=== PATIENT | male | born 1975 | race Caucasian/White ===

== ENCOUNTER 2020-11-22 13:14 | Inpatient (IN) | payer SELFPAY ==
[2020-11-22 13:31] VITALS: BP 134/92; PULSE 74; RESP 16; TEMP 37.1; O2SAT 97; BMI 33.6
--- NOTE | 2020-11-22 14:08 | XR_ITS ---
WS: [id number] Portable AP upright chest, 11/22/2020 Clinical Data: cp Comparison: PA and lateral chest, 03/02/2018. Findings: No nodules, masses or effusions are seen. The heart is normal. The pulmonary vascularity is not increased. No pneumonia or pneumothorax is seen. XR/XR chest 1V portable [id number] Impression: Negative chest.
--- NOTE | 2020-11-22 14:08 | ECG_ITS ---
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 Measurements Intervals [place] Rate: 77 P: 35 OR: 165 QRS: -57 QRSD: 102 T: 45 QT: 380 QTc: 432 Interpretive Statements SINUS RHYTHM POSSIBLE LEFT ATRIAL ENLARGEMENT [-0.1mV P WAVE IN V1/V2] LEFT ANTERIOR FASCICULAR BLOCK [QRS AXIS <= -45, QR IN I, RS IN II] Compared to ECG 04/10/2018 10:41:39 Right ventricular hypertrophy now present Incomplete right bundle-branch block now present Electronically Signed On 11-23-2020 7:02:53 CDT by Latisha Peet M.D. [id number]
--- NOTE | 2020-11-22 16:08 | ECG_ITS ---
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 Measurements Intervals [place] Rate: 66 P: 15 [place]: 164 QRS: -40 QRSD: 104 T: 81 QT: 399 QTc: 419 Interpretive Statements SINUS RHYTHM MARKED LEFT AXIS DEVIATION [QRS AXIS < -30] INCOMPLETE RIGHT BUNDLE BRANCH BLOCK [90+ ms QRS DURATION, TERMINAL R IN V1/V2, 40+ ms S IN I/aVL/V4/V5/V6] SEPTAL MYOCARDIAL INFARCTION [40+ ms Q WAVE IN V1/V2], OF INDETERMINATE AGE Compared to ECG 11/22/2020 13:29:00 Left-axis deviation now present Myocardial infarct finding now present Right ventricular hypertrophy no longer present Left anterior fascicular block no longer present Electronically Signed On 11-23-2020 7:12:47 CDT by Latisha Pete M.D. [id number]
[2020-11-22 16:55] LABS: Basophils # 0.1 10^3/uL (0.0-0.1); Basophils % 0.8 %; Eosinophils # 0.3 10^3/uL (0.0-0.8); Eosinophils % 1.4 %; Hematocrit 53.4 % (42.0-52.0); Hemoglobin 16.9 g/dL (11.7-16.6); Lymphocytes # 4.1 10^3/uL (0.8-4.8); Lymphocytes % 23.4 %; Mean Corpuscular HGB Conc 31.6 g/dL (30.0-36.0); Mean Corpuscular Hemoglobin 29.5 pg (28.0-34.0); Mean Corpuscular Volume 93.4 fL (80-94); Monocytes # 1.2 10^3/uL (0.2-0.9); Neutrophils # 11.71 10^3/uL (1.8-7.7); Nucleated Red Blood Cells % 0 %; Platelet Count 833 10^3/cmm (130-400); Red Blood Count 5.72 10^6/uL (4.1-5.3); Red Cell Distribution Width 14.9 % (12.1-15.1); White Blood Count 17.5 10^3/uL (4.0-10.0)
[2020-11-22 17:17] LABS: Troponin(5th) Baseline 75 ng/L (0-15)
[2020-11-22 17:19] LABS: Alanine Aminotransferase 19 U/L (0-41); Albumin Level 4.6 g/dL (3.5-5.2); Alkaline Phosphatase 114 IU/L (40-130); Anion Gap 13.4 (5-19); Aspartate Amino Transferase 25 U/L (0-40); Blood Urea Nitrogen 11 mg/dL (6-20); Calcium 9.1 mg/dL (8.5-10.5); Carbon Dioxide 27 mmol/L (22-29); Chloride 103 mmol/L (98-107); Globulin 2.5 g/dL (1.3-4.6); Glomerular Filtration Rate 105.5 mL/min (90-130); Glucose 82 mg/dL (65-115); Osmolality Calculated 286 mOsm/kg (285-295); Potassium 4.4 mmol/L (3.5-5.1); Sodium 139 mmol/L (136-145); Total Bilirubin 0.3 mg/dL (0.15-1.2); Total Protein 7.1 g/dL (6.6-8.7)
[2020-11-22 18:00] VITALS: BP 124/86; PULSE 62; RESP 15; O2SAT 97
--- NOTE | 2020-11-22 18:29 | W.ED.CHESTPA ---
HPI - Chest Pain General: Chief Complaint: Chest Pain Stated Complaint: CP Time Seen by Provider: 11/22/20 18:19 Source: patient Mode of arrival: ambulatory Limitations: no limitations History of Present Illness: HPI narrative: 45-year-old male states that over the last 2 days he has been having chest pain. He states it started on was mowing and is much worse with exertion. He has a very strong family history of heart disease. He is also a longtime smoker. He states that he was seen in the clinic today was sent here. He had aspirin nitro at the clinic and the nitro did relieve his pain but the pain is returned over the last 2 to 3 hours. States pain is currently a 5 out of 10. Denies any shortness of breath. Denies any nausea or vomiting. Associated symptoms: Deny abdominal pain, dyspnea, fever(s), nausea or vomiting Review of Systems Const: Denies: fever(s), chills, body aches or change in appetite Eyes: Denies: blurry vision or eye discomfort ENMT: Denies: throat pain or dental pain Card: Reports: chest pain Resp: Denies: dyspnea GI: Denies: abdominal pain, nausea, vomiting or diarrhea : Denies: dysuria Musc: Denies: neck pain or back pain Skin/Breast: Denies: rash Neuro: Denies: headache(s) Psych: Denies: depression Ruiz/Lymph: Denies: easy bruising All/Imm: Denies: urticaria PFSH ED PFSH: Family History (Updated 11/22/20 @ 11:55 by Sue Escobar LPN, RT) Brother , age 37; [place] CAD (coronary artery disease) Mother CAD (coronary artery disease) Social History (Updated 11/22/20 @ 12:06 by Sue Escobar LPN, RT) Smoking and tobacco status: current some day smoker cigarettes Packs smoked per day: 1 Years cigarettes smoked: 25 Second hand smoke exposure: Yes Alcohol intake: current Alcohol intake frequency: holidays/special occasions only Caregiver/support person: Yes Lives independently: Yes Household members: spouse Marital status: service: No Current occupational status: employed History of recent travel: No Current gender identity: Male Physical Exam Const: COMMON NORMALS: no acute distress, patient oriented x3 and healthy appearing HENMT: COMMON NORMALS: normocephalic and atraumatic HEAD & SCALP: normocephalic and atraumatic Eye: COMMON NORMALS: Equal, round and reactive pupils present and EOMs intact bilaterally PUPIL: Yes Equal, round and reactive pupils present Neck/C-Spine: COMMON NORMALS: full ROM and supple Chest: COMMONS NORMALS: normal inspection of the chest and normal palpation of entire chest wall Resp: COMMON NORMALS: normal respiratory effort, No retractions, No use of accessory muscles and clear to auscultation bilaterally AUSCULTATION: clear to auscultation bilaterally Cardio: COMMON NORMALS: regular rate, regular rhythm and No murmurs present (Cardio) RATE: regular rate RHYTHM: regular rhythm GI: COMMON NORMALS: Normal to inspection, nondistended, normoactive bowel sounds present, Soft to palpation, non-tender and no masses PALPATION: Yes Soft to palpation Extremity: COMMON NORMALS: normal to inspection and full ROM Neuro: COMMON NORMALS: patient oriented x3, moves all extremities and no focal motor deficits Psych: COMMON NORMALS: mental status grossly normal, Normal thought process present and cooperative THOUGHT PROCESS: Normal thought process present Skin: COMMON NORMALS: no rashes or lesions noted and no wounds GENERAL SKIN EXAM: no rashes or lesions noted Course Vital Signs: Vital signs: Vital Signs Temperature 98.8 F 11/22/20 13:31 Pulse Rate 74 11/22/20 13:31 Respiratory Rate 16 11/22/20 13:31 Blood Pressure 134/92 11/22/20 13:31 Pulse Oximetry 97 11/22/20 13:31 MDM - Chest Pain MDM Narrative: Medical decision making narrative: Patient presents here with a non-ST elevation [place]. Patient's repeat troponin here is elevated. His EKG showed no signs of ST elevation [place]. He has been pain-free here in the ER. Spoke to hospitalist and will admit cardiology is consulted as well. Lab Data: Labs: Lab Results 11/22/20 11/22/20 11/22/20 Range/Units 16:43 16:43 16:43 WBC 17.5 H (4.0-10.0) 10^3/ uL RBC 5.72 H (4.1-5.3) 10^6/u L Hgb 16.9 H (11.7-16.6) g/dL Hct 53.4 H (42.0-52.0) % MCV 93.4 (80-94) fL MCH 29.5 (28.0-34.0) pg MCHC 31.6 (30.0-36.0) g/dL RDW 14.9 (12.1-15.1) % Plt Count 833 H (130-400) 10^3/c mm MPV 9.0 (7.4-10.4) fL Neut % (Auto) 67.0 % Lymph % (Auto) 23.4 % [place] % (Auto) 7.0 % Eos % (Auto) 1.4 % Baso % (Auto) 0.8 % Neut # (Auto) 11.71 H (1.8-7.7) 10^3/u L Lymph # (Auto) 4.1 (0.8-4.8) 10^3/u L [place] # (Auto) 1.2 H (0.2-0.9) 10^3/u L Eos # (Auto) 0.3 (0.0-0.8) 10^3/u L Baso # (Auto) 0.1 (0.0-0.1) 10^3/u L Nucleated RBC % (a uto) 0 % Nucleated RBCs # 0.0 /100WBC Sodium 139 (136-145) mmol/L Potassium 4.4 (3.5-5.1) mmol/L Chloride 103 (98-107) mmol/L Carbon Dioxide 27 (22-29) mmol/L Anion Gap 13.4 (5-19) BUN 11 (6-20) mg/dL Creatinine 0.8 (0.7-1.2) mg/dL GFR Calculation 105.5 (90-130) mL/min Glucose 82 (65-115) mg/dL Calculated Osmolal ity 286 (285-295) mOsm/k g Calcium 9.1 (8.5-10.5) mg/dL Total Bilirubin 0.3 (0.15-1.2) mg/dL AST 25 (0-40) U/L ALT 19 (0-41) U/L Alkaline Phosphata se 114 (40-130) IU/L Troponin T Baselin e 75 H (0-15) ng/L Troponin T 120 Min [place] (0-15) ng/L Delta Troponin T (0-10) ABS# Total Protein 7.1 (6.6-8.7) g/dL Albumin 4.6 (3.5-5.2) g/dL Globulin 2.5 (1.3-4.6) g/dL 11/22/20 Range/Units 18:43 WBC (4.0-10.0) 10^3/ uL RBC (4.1-5.3) 10^6/u L Hgb (11.7-16.6) g/dL Hct (42.0-52.0) % MCV (80-94) fL MCH (28.0-34.0) pg MCHC (30.0-36.0) g/dL RDW (12.1-15.1) % Plt Count (130-400) 10^3/c mm MPV (7.4-10.4) fL Neut % (Auto) % Lymph % (Auto) % [place] % (Auto) % Eos % (Auto) % Baso % (Auto) % Neut # (Auto) (1.8-7.7) 10^3/u L Lymph # (Auto) (0.8-4.8) 10^3/u L [place] # (Auto) (0.2-0.9) 10^3/u L Eos # (Auto) (0.0-0.8) 10^3/u L Baso # (Auto) (0.0-0.1) 10^3/u L Nucleated RBC % (a uto) % Nucleated RBCs # /100WBC Sodium (136-145) mmol/L Potassium (3.5-5.1) mmol/L Chloride (98-107) mmol/L Carbon Dioxide (22-29) mmol/L Anion Gap (5-19) BUN (6-20) mg/dL Creatinine (0.7-1.2) mg/dL GFR Calculation (90-130) mL/min Glucose (65-115) mg/dL Calculated Osmolal ity (285-295) mOsm/k g Calcium (8.5-10.5) mg/dL Total Bilirubin (0.15-1.2) mg/dL AST (0-40) U/L ALT (0-41) U/L Alkaline Phosphata se (40-130) IU/L Troponin T Baselin e (0-15) ng/L Troponin T 120 Min [place] 126.3 H (0-15) ng/L Delta Troponin T 51.3 H* (0-10) ABS# Total Protein (6.6-8.7) g/dL Albumin (3.5-5.2) g/dL Globulin (1.3-4.6) g/dL Imaging Data^: CXR: Attestation: I personally reviewed and interpreted this imaging study as follows: My impression: no acute abnormality EKG Data^: EKG 1: Attestation: I personally reviewed and interpreted this EKG as follows: EKG interpretation date: 11/22/20 EKG interpretation time: 13:29 Interpretation: nsr hr [address] or t wave abnormalities qrs 102 qtc 412 EKG 2: Attestation: I personally reviewed and interpreted this EKG as follows: EKG interpretation date: 11/22/20 EKG interpretation time: 17:35 Interpretation: nsr hr [address] or t wave abnormalities qrs 104 qtc 412 Discharge Plan Discharge Patient Disposition: Admitted As Inpatient Clinical Impression: Non-ST elevation [place] (NSTEMI) Condition: Stable Coding Level of Care Code ED Human Performance Professor for Chg Fwd Exam Comprehensive
[2020-11-22 19:40] LABS: Troponin 5 2HR 126.3 ng/L (0-15); Troponin 5 2HR Delta 51.3 ABS# (0-10)
--- NOTE | 2020-11-22 20:08 | ECG_ITS ---
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 Measurements Intervals [place] Rate: 59 P: 15 [place]: 165 QRS: -40 QRSD: 116 T: 83 QT: 422 QTc: 421 Interpretive Statements SINUS BRADYCARDIA INDETERMINATE AXIS INCOMPLETE RIGHT BUNDLE BRANCH BLOCK [90+ ms QRS DURATION, TERMINAL R IN V1/V2, 40+ ms S IN I/aVL/V4/V5/V6] SEPTAL MYOCARDIAL INFARCTION [40+ ms Q WAVE IN V1/V2], OF INDETERMINATE AGE LATERAL MYOCARDIAL INFARCTION, PROBABLY RECENT Compared to ECG 11/22/2020 17:35:58 Indeterminate axis now present Sinus rhythm no longer present Left-axis deviation no longer present Myocardial infarct finding still present Electronically Signed On 11-23-2020 7:07:13 CDT by Latisha Pete M.D. [id number]
[2020-11-22] MEDS: enoxaparin 80 mg/0.8 mL Syringe SUBCUT (20:09)
--- NOTE | 2020-11-22 20:12 | P.HP_ITS ---
Providers/Chief Complaint Primary Care Provider: AYAZ Ferrell Chief Complaint: CP History of Present Illness Mg Pritchett is a 45 year old male who presented today with chief complaint of chest pain. Patient is stating that he was mowing his lawn yesterday when he started experiencing chest discomfort which he is describing as burning sensation, he attributed his symptoms initially to GERD, at home he took Pepto- Bismol but his symptoms persisted. He was describing his pain as mild burning which stayed all night and in the morning when he woke up he noticed similar complaints, his and mother convinced him to go to his PCP and get evaluated. At the clinic he was given 1 sublingual nitroglycerin, and loading dose of aspirin which relieved his chest discomfort and he was asked to go to the ER for further evaluation. He is denying orthopnea, PND, shortness of breath, nausea, vomiting, diaphoresis. 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 Endorses family history of premature coronary artery disease. His brother who was 37 years of age when he had an DE and sudden cardiac arrest. Diagnosis in the ER revealed NSTEMI EKG is not showing any acute DE changes however showing incomplete right bundle branch block, significant delta troponin, patient is chest pain-free at the time my evaluation, normal blood pressure and heart rate saturating well on room air, was comfortable at the time of interview Review of Systems Narrative: No headache No fever No generalized weakness lethargy or fatigue No vision changes No shortness of breath No abdominal pain No fever, myalgia or lethargy No urinary frequency No joint swelling No skin rash No headache No easy bleeding No heart flashes No signs of depression or anxiety No abdominal pain No shortness of breath Medications/Allergies Home Medications Medication Instructions Recorded Confirmed Last Taken Type No Known Home Medications 11/22/20 11/22/20 Unknown History Allergies Allergy/AdvReac Type Severity Reaction Status Date / Time No Known Allergies Allergy Verified 11/22/20 13:39 PFSH Acute PFSH: Medical History MVP (mitral valve prolapse) Right bundle branch block Surgical History No pertinent past surgical history S/P nasal surgery Family History Brother , age 37; [place] CAD (coronary artery disease) Mother CAD (coronary artery disease) Social History Smoking and tobacco status: current some day smoker cigarettes Packs smoked per day: 1 Years cigarettes smoked: 25 Second hand smoke exposure: Yes Alcohol intake: current Alcohol intake frequency: holidays/special occasions only Caregiver/support person: Yes Lives independently: Yes Household members: spouse Marital status: service: No Current occupational status: employed History of recent travel: No Current gender identity: Male Vitals/I&O/Wt Last Vital Signs Temp 98.8 F 11/22/20 13:31 Pulse 74 11/22/20 13:31 Resp 16 11/22/20 13:31 BP 134/92 11/22/20 13:31 Pulse Ox 97 11/22/20 13:31 Weight last 48 hrs Weight 83.461 kg Physical Exam Narrative: EXAM NARRATIVE: Very pleasant cooperative young male Currently sitting in semi-Fritz position saturating well on room air No active chest pain S1, S2 no signs of murmur Bilateral breath sounds without adventitious rhonchi or crackles Abdomen soft nontender bowel sound present Lower extremity no edema gangrene ulcer Appropriate mood and affect No joint swelling skin changes or cellulitis EOMI, PERRLA no neurological deficit Awake alert oriented x3 GCS 15 Data : 11/22/20 16:43 11/22/20 16:43 A&P Assessment and plan (1) Non-ST elevation [place] (NSTEMI): Status: Acute Additional A&P Information NSTEMI Unstable angina with family history of premature coronary disease N.p.o., will need an angiogram Cardiology consult Start ACS protocol with Lovenox Requested lipid panel, A1c, echo, TSH and drug screen Normal saline maintenance rate N.p.o. DVT prophylaxis not indicated Full code Will need nicotine replacement therapy at the time of discharge Attestations Medical Necessity Statement*: Anticipating stay to hospital course more than 2 midnights for angiogram Time Spent in Patient Care: 30 minutes Coding Level of Care Code Acute Automotive Glass Mechanic for Matthew Ferguson Diagnoses Non-ST elevation [place] (NSTEMI) I21.4
--- NOTE | 2020-11-22 20:19 | PC.NURSE ---
Hold nitropaste for now because pt denies pain at this time. Per Dr. West, in room.
[2020-11-22] MEDS: nicotine 21 mg Patch 1 PATCH TRANSDERMA (20:52)
[2020-11-22 21:45] LABS: Chol HDL Ratio 4.75 mg/dL (1.0-5.00); Cholesterol 152 mg/dL (0-200); HDL Cholesterol 32 mg/dL (60-100); LDL Cholesterol Calculated 100 mg/dL (50-129); LDL HDL Ratio 3.13 RATIO (0.00-3.22); Triglycerides 100 mg/dL (0-150)
[2020-11-22 21:49] LABS: Estmated Average Glucose 105; Hemoglobin A1C 5.3 % (4.0-6.0)
--- NOTE | 2020-11-22 22:54 | PM.CONSULT ---
Providers/Reason For Consult Consulting Physician/Specialty*: Stan Cottrell MD/Cardiology Reason for Consult*: NSTEMI Requesting Physician: Dr Marc Attending Physician: Dr Marie Primary Care Provider: AYAZ Ferrell History of Present Illness History of Present Illness Mg Pritchett is a 45 year old male with past medical history of tobacco abuse and significant family history of coronary artery disease is here with 2 days of chest discomfort. According to patient he started noticing chest discomfort when he was mowing lawn. It has been going on and off however today had a prolonged episode and family convinced him to come to the hospital. His troponins trended up significantly consistent with non-ST elevation [place]. One of his brothers with VA at age 38. EKG does not demonstrate acute ST changes. In the ER she continued having chest pain however after receiving nitros, the chest pain has subsided. Review of Systems Narrative: CONSTITUTIONAL: No fever chills weight loss or gain or night sweats. [] HEENT: Normocephalic, atraumatic.[] RESPIRATORY: No cough, sputum, hemoptysis or wheezing.[] CARDIOVASCULAR: Had chest pain. No shortness of breath, PND, orthopnea, lower extremity edema, presyncope or syncope. [] GI: no nausea vomiting diarrhea. [] SUPERVISOR FRUIT GRADING: No numbness, tingling, weakness or loss of function in any part of the body. [] MUSCULOSKELETAL: No knee or joint pain or rashes. [] Meds/Allergies Home Medications and Allergies Home Medications Medication Instructions Recorded Confirmed Last Taken Type No Known Home Medications 11/22/20 11/23/20 Unknown History Allergies Allergy/AdvReac Type Severity Reaction Status Date / Time No Known Allergies Allergy Verified 11/22/20 13:39 PFSH Acute PFSH: Medical History MVP (mitral valve prolapse) Right bundle branch block Surgical History No pertinent past surgical history S/P nasal surgery Family History Brother , age 37; [place] CAD (coronary artery disease) Mother CAD (coronary artery disease) Social History Smoking and tobacco status: current some day smoker cigarettes Packs smoked per day: 1 Years cigarettes smoked: 25 Second hand smoke exposure: Yes Alcohol intake: current Alcohol intake frequency: holidays/special occasions only Caregiver/support person: Yes Lives independently: Yes Household members: spouse Marital status: service: No Current occupational status: employed History of recent travel: No Current gender identity: Male Vitals/I&O/Wt Last Vital Signs Temp 98.8 F 11/22/20 13:31 Pulse 62 11/22/20 18:00 Resp 15 11/22/20 18:00 BP 124/86 11/22/20 18:00 Pulse Ox 97 11/22/20 18:00 Weight last 48 hrs Weight 184 lb Physical Exam Narrative: EXAM NARRATIVE: GENERAL: Patient is alert, awake and oriented x3. [] NECK: No jugular vein distension. [] HEENT: No cyanosis. No icterus. No pallor. [] HEART: Regular S1 and S2. No murmur, rub or gallop. [] LUNGS: Clear to auscultate bilaterally. [] ABDOMEN: Soft, nontender and nondistended. Positive bowel sounds. No guarding, rebound or tenderness. [] CENTRAL NERVOUS SYSTEM: Grossly nonfocal. [] EXTREMITIES: Lower extremities with 1+ edema bilaterally. Pulses palpable in the lower extremities, both dorsalis pedis and posterior tibial. [] A&P Assessment and plan (1) Non-ST elevation [place] (NSTEMI): Status: Acute (2) Tobacco abuse: Status: Acute Patient has presented with typical chest pain symptoms for the last 2 days and troponin elevation consistent with non-ST elevation [place]. Start aspirin and Plavix. Therapeutic anticoagulation. Keep patient n.p.o. for coronary angiogram in the morning. I have discussed the procedure, risks and benefits associated with it, and patient is agreeable to proceed with it. Order echocardiogram. Thank you for involving us with the care of this patient. We will continue to follow. Please call with questions. Coding Level of Care Code Acute High Pressure Boiler Operator for Matthew Ferguson Diagnoses Non-ST elevation [place] (NSTEMI) I21.4 Tobacco abuse Z72.0
[2020-11-22 23:11] LABS: Troponin 5 6HR 234.3 ng/L (0-15); Troponin 5 6HR Delta 159.3 ng/L (0-12)
--- NOTE | 2020-11-22 23:19 | PC.NURSE ---
Still unable to provide urine specimen.
--- NOTE | 2020-11-22 23:19 | PC.NURSE ---
Denies pain at this time.
[2020-11-22 23:20] VITALS: BP 108/62; PULSE 69; RESP 16; O2SAT 97
[2020-11-23] VITALS (49 sets, daily range): BP systolic 105–143; BP diastolic 64–100; PULSE 55–86; RESP 12–22; TEMP 36.5; O2SAT 95–100
[2020-11-23 01:21] LABS: Amphetamines Screen Urine Negative (Negative); Barbiturates Screen Urine Negative (Negative); Benzodiazepines Screen Urine Negative (Negative); Cocaine Screen Urine Negative (Negative); Opiate Screen Urine Negative (Negative); PCP Screen Urine Negative (Negative); THC Screen Urine Positive (Negative)
--- NOTE | 2020-11-23 03:56 | PC.NURSE ---
2000 Ana Mariatat paste held per hospitalist Frank, who was at bedside. Pt denies pain.
[2020-11-23] MEDS: clopidogrel 300 mg Tablet PO (04:04)
[2020-11-23 06:57] LABS: Anion Gap 13.6 (5-19); Blood Urea Nitrogen 11 mg/dL (6-20); Calcium 8.7 mg/dL (8.5-10.5); Carbon Dioxide 27 mmol/L (22-29); Chloride 102 mmol/L (98-107); Glomerular Filtration Rate 105.5 mL/min (90-130); Glucose 98 mg/dL (65-115); Osmolality Calculated 285 mOsm/kg (285-295); Potassium 4.6 mmol/L (3.5-5.1); Sodium 138 mmol/L (136-145)
--- NOTE | 2020-11-23 07:28 | XACV_ITS ---
[place] [facility] [place] 188 cm Wt: 83 kg BSA: 2.09 m2 Gender: Male : 1975 Any Known Allergies: No known allergies Exam Priority: Routine Procedure(s): Procedure Description: Diagnostic procedure Procedure Description: PCI procedure Procedure Description: Drug Eluting Coronary Stent Procedure Description: PTCA Procedure Description: Miscellaneous Procedure Description: ACT Procedure Description: Coronary Angiography Diagnostic Cath Status: Urgent Diagnostic Findings * No disease noted in the Left Main, Left Anterior Descending, Right, or Circumflex coronary arteries. * 1st Diagonal: severe 90% stenosis, NORBERTO: 3 flow. * Coronary angiography shows right dominance. PCI Status: Urgent PCI Indication: NSTE - ACS Interventional Findings * Procedure details: We engaged left main artery with a XB 3.5 guide catheter. IV heparin was administered to maintain an ACT above 250 seconds. A 0.014 run-through guidewire was used to cross the stenosis and was placed in distal part of diagonal artery. 2.5 x 8 mm semicompliant balloon was used to predilate the stenosis . This was followed by placement of [id number] resolute Cannon drug-eluting stent. At this time final angiogram was performed that showed excellent stent expansion, NORBERTO-3 flow and no residual stenosis. Guidewire and guide catheter were removed. Patient left the Wound Care Specialist in a stable condition. * 1st Diagonal: 90% stenosis treated with a AB TREK 2.50X8 RX BALLOON, and MDT R JEREMIAH 2.75X15 YULI. 0% residual stenosis, NORBERTO: 3 flow. Conclusions 1. Severe stenosis of the proximal first diagonal artery. 2. No disease noted in the Left Main, Left Anterior Descending, Right, or Circumflex coronary arteries. 3. 1st Diagonal was treated with a Balloon, and Drug Eluting Stent. Recommendations * Aspirin and Plavix for atleast 1 year. * High intensity statin therapy. * Aggressive risk factor control. * Outpatient cardiology follow up in 1 month. Interventional RX Recommendation: PCI w/o planned CABG Diagnostic RX Recommendation: PCI w/o planned CABG Anticoagulation: Heparin Pressures Phase:Rest AO : 135 / 58 ( 100 ) @ 7:10:00 AM 99 / 81 ( 91 ) @ 7:15:00 AM 112 / 76 ( 92 ) @ 7:17:00 AM Clinical Evaluation EBL: 5mL-10mL Procedural Details Procedure Consent Obtained. Pre-Procedure Time Out. Identified patient by full name and date of as verbalized by the patient/guarantor. Does the consent match the physician's order: Yes. Accurate & Complete Informed Consent: Yes. Inpatient/Outpatient History & Physical on Chart: Yes. If H&P is completed, is and addenduem needed: No; If yes, is the addendum complete: N/A. Visualize and Verify Site with Patient/Guarantor: N/A. Relevant Radiology Images available: N/A. Pre-op teaching completed and patient verbalized understanding. The risks, benefits, and alternatives of sedation and/or procedure were discussed by physician. The patient agrees to continue. Procedure started. [facility] Clinical Fraility Score: 2: Well. Wound Care Specialist Indications: ACS <= 24 hours. Chest Pain Symptom Assessment: Typical Angina Symptoms. Cardiovascular Instability: No. Correct patient, site and procedure confirmed by cath team. PERRLA. Strong, equal hand electrical continuity tester bilaterally. Lungs clear x 5 lobes. IV Site on Arrival: 18 gauge in the left anticubital. IV Fluids: 0.9% NaCl at KVO. 0 mL infused prior to recyclable materials distributor. Pre Procedural Pulses: bilateral radial was 3+. Pre Procedural Pulses: bilateral dorsalis pedis was 1+. Pre Procedural Pulses: bilateral posterior tibial was 1+. Oxygen started at 2liters/min via nasal canula. right groin was prepped with chloroprep then draped in the usual sterile fashion. right radial was prepped with chloroprep then draped in the usual sterile fashion. Physician arrived. Equipment: 6F - Radial. Cardiac Cath Pack. [employer] Manifold Kit Model BT 2000. Heparinized Saline (2 units/mL), 1000 mL bag. Physician scrubbed in. Immediate Pre-Procedure Time Out. Correct Patient: Yes; Correct Procedure: Yes; Correct Site: Yes; Correct Patient Position: Yes; Correct Supplies: Yes; Dried Flammable Prep: Yes; Blood Products Available: N/A;. Lidocaine 1% infiltrated to the right radial. Arterial access obtained. A 5 turkmen TIG catheter in over wire. Catheter redirected to the RCA. Catheter removed over the exchange wire. A 5 turkmen JR4 catheter in over wire. Multiple views taken of left coronary artery. Multiple views taken of right coronary artery. Catheter removed over the exchange wire. Inventory is CRD 6 FR XB 3.5 GUIDE. Inflation number : 1 A AB TREK 2.50X8 RX BALLOON was prepped and advanced across the 1st Diag , then inflated to 8 JUNAID for 0:17 seconds. Inflation number: 2 The AB TREK 2.50X8 RX BALLOON was reinflated across the 1st Diag, to 8 JUNAID for 0:23 seconds. Balloon out. Inflation Number : 3 A MDT R JEREMIAH 2.75X15 YULI -Lot Number# [id number] exp date 07/29/2022 was prepped and advanced across the 1st Diag. The stent was deployed at 12 JUNAID for 0:23 seconds. Stent balloon out over wire. ACT drawn. Results 411 seconds. Therapeutic limits - pre-heparin administration 90-150 seconds and monitoring heparin during a vascular procedure >250 seconds. Wire out. Guide catheter out. Physician scrubbed out. A TR Band was successful obtaining hemostatsis at the Right Radial artery insertion site. TR band placed. Hemostasis obtained. Post Procedure: Pulses reassessed and unchanged. PERRLA. Strong, equal hand electrical continuity tester bilaterally. No VTE prophylaxis required. Medication's Wasted: Lidocaine 1% = 18 mL. Medication's Wasted: Nitro = 49.4 mg. Medication's Wasted: Other = cardene 24.6 mg. Medication's Wasted: Other = versed 1 mg. Medication's Wasted: Other = fentanyl 50 mcg. Total IV fluids: 170 mL. Contrast type used: Visipaque 320 mgI/mL, 500 mL bottle. Post-op diagnosis: nstemi. PCI Indication: NSTE. Complications: none. Estimated blood loss: 5mL-10mL. Procedure completed. Patient transferred by wheelchair to CPRU. Vital chart was stopped. Access Site Site: Right Radial artery Sheath Size: 6 Fr Hemostasis Method: TR Band Hemostasis Success: Successful Procedure Medications Start: 8:02 AM Stop: 8:02 AM Medication: Versed Amount: 1 mg Route: I.V. Start: 8:02 AM Stop: 8:02 AM Medication: Fentanyl Amount: 50 mcg Route: I.V. Start: 8:05 AM Stop: 8:05 AM Medication: Versed Amount: 1 mg Route: I.V. Start: 8:06 AM Stop: 8:06 AM Medication: Fentanyl Amount: 50 mcg Route: I.V. Start: 8:06 AM Stop: 8:06 AM Medication: Nitrogylcerin Amount: 200 mcg Route: I.A. Start: 8:07 AM Stop: 8:07 AM Medication: Heparin Amount: 5000 units Route: I.V. Start: 8:17 AM Stop: 8:17 AM Medication: Heparin Amount: 5000 units Route: I.V. Start: 8:27 AM Stop: 8:27 AM Medication: Versed Amount: 1 mg Route: I.V. Start: 8:27 AM Stop: 8:27 AM Medication: Fentanyl Amount: 50 mcg Route: I.V. Start: 8:31 AM Stop: 8:31 AM Medication: Nitrogylcerin Amount: 200 mcg Route: I.C. Start: 8:37 AM Stop: 8:37 AM Medication: Cardene Amount: 200 mcg Route: I.C. Start: 8:37 AM Stop: 8:37 AM Medication: 0.9% Saline Amount: 250 ml Route: I.V. bolus I, the attending physician, have reviewed and verified all procedure medications. Yes, all medications given per verbal order History/Risk Factors Hypertension: No Dyslipidemia: No Peripheral Arterial Disease (PAD): No Myocardial Infarction (CA): No Obesity: No Renal Disease: No Tobacco Use: Current/Recent(w/in 1 year) Prior Interventions PCI: No CABG: No Valve Surgery: No Report Signatures Finalized by Stan Cottrell MD on 12/07/2020 05:58 PM
--- NOTE | 2020-11-23 07:43 | PC.NURSE ---
Patient taken to slabber at this time
--- NOTE | 2020-11-23 07:48 | W.PM.OPSUD ---
Surgery/Procedure H&P Update DATE OF PROCEDURE: November 23, 2020 DATE H&P PERFORMED: 11/22/20 H&P UPDATE INFORMATION: I have reviewed H&P completed within last 30 days, I have examined patient prior to procedure and No changes to prior documentation PREOP DIAGNOSIS: NSTEMI PRIMARY INDICATION FOR PROCEDURE: NSTEMI PLANNED PROCEDURE: Left heart cath with possible percutaneous coronary intervention PATIENT REASSESSED PRIOR TO SEDATION, WITH NO CHANGE NOTED: Yes PHYSICAL EXAM: alert, oriented x 3, clear to auscultation bilaterally and regular rate & rhythm AIRWAY EVAL/ANESTHESIA PLAN: ASA III, Monitored Anesthesia, Local Anesthesia, Risks, benefits & alternatives of sedation and/or procedure discussed and Patient agrees to continue as planned
--- NOTE | 2020-11-23 09:04 | PC.CHAP ---
Pastoral Care Encounter/Spiritual Assessment Type of Contact [] Declined power plant technician visit [] Patient/Family/Request visit [] Outpatient visit [] Follow-up visit [] Physician referral [] Code/Alert [x] Routine visit [] Staff referral [] Actively dying [] Patient sleeping [] Family support [] [x] Out of room [] Palliative care [] [] Receiving care in room [] Pre-surgical visit [] Trauma [] Long length of stay [x] ICU visit [] Other: Relational/Emotional Strength [] Patient feels connected with others/family/visitors/staff [] Distress [] Loneliness/isolation [] Abandonment Spirituality of Patient [] Person of Quin [] Attends Rastafarian of their Quin [] Believes in Prayer [] Reads Bible or Scientology materials [] There are Spiritual issues to be addressed Recreational Resort Manager Interventions [] Prayer [] Active listening [] Non-anxious presence [] Spiritual/emotional support [] Crisis/trauma care [] Spiritual counseling [] Bereavement support [] Provided bereavement packet [] Provided Bible/devotional materials [] Provided toy/stuffed animal, coloring book to patient or family member [] Provided Communion [] Anointing/[place] [] Salvation [x] Completed spiritual assessment [] Other: Impact on Illness or Injury [] Angry [] Fearful [] Anxious [] Often cries [] Exhaustion [] Unable to work [] Unable to attend nondenominational [] Unable to walk/stand [] Unable to read [] Unable to drive [] Unable to eat/drink [] Unable to sleep [] Unable to be with family [] Patient intubated [] Other: Summary Time spent with patient
[2020-11-23] MEDS: sodium chloride 0.9% 1,000 ML 100 ML IV ×2 (09:17→15:51)
--- NOTE | 2020-11-23 09:23 | PM.PN ---
Subjective Subjective: Interval history: Patient is doing well. He underwent successful revascularization of the diagonal artery today. Vitals/I&O/Wt Last Vital Signs Temp 98.8 F 11/22/20 13:31 Pulse 66 11/23/20 07:43 Resp 15 11/23/20 07:43 BP 105/64 11/23/20 07:43 Pulse Ox 97 11/23/20 07:43 Weight last 48 hrs Weight 184 lb Physical Exam Narrative: EXAM NARRATIVE: GENERAL: Patient is alert, awake and oriented x3. [] NECK: No jugular vein distension. [] HEENT: No cyanosis. No icterus. No pallor. [] HEART: Regular S1 and S2. No murmur, rub or gallop. [] LUNGS: Clear to auscultate bilaterally. [] ABDOMEN: Soft, nontender and nondistended. Positive bowel sounds. No guarding, rebound or tenderness. [] CENTRAL NERVOUS SYSTEM: Grossly nonfocal. [] EXTREMITIES: Lower extremities with 1+ edema bilaterally. Pulses palpable in the lower extremities, both dorsalis pedis and posterior tibial. [] Data : 11/22/20 16:43 11/23/20 06:29 A&P Assessment and plan (1) Non-ST elevation FL (NSTEMI): Status: Acute (2) Tobacco abuse: Status: Acute Patient had non-ST elevation FL. Underwent coronary angiogram today that revealed to severe thrombotic stenosis of diagonal artery. He underwent successful revascularization with YULI x1. Continue aspirin and Plavix Stop Lovenox Echocardiogram ordered. Thank you for involving us with the care of this patient. We will continue to follow. Please call with questions. Attestations Medical Necessity Statement*: Care expected to cross 2 midnights. Coding Level of Care Code Acute Glass Rolling Machine Operator for Matthew Ferguson Diagnoses Non-ST elevation FL (NSTEMI) I21.4 Tobacco abuse Z72.0
--- NOTE | 2020-11-23 09:34 | USCV_ITS ---
Mg Pritchett Age: 45 Gender: M : 1975 Exam Date: 11/23/2020 14:53 Ordering Phys: Stan Cottrell M.D ([email or web address]) Technologist: Todd Lawton [place] [facility] [place]: NSTEMI BP: 117 / 80 HR: 59 Rhythm: Sinus Technical Quality: Good MEASUREMENTS (Male / Female) Normal Values 2D ECHO LV Diastolic Diameter PLAX 4.6 cm 4.2 - 5.9 / 3.9 - 5.3 cm LV Systolic Diameter PLAX 2.9 cm IVS Diastolic Thickness 1.4 cm 0.6 - 1.0 / 0.6 - 0.9 cm IVS Systolic Thickness 1.4 cm LVPW Diastolic Thickness 1.0 cm 0.6 - 1.0 / 0.6 - 0.9 cm LVPW Systolic Thickness 1.2 cm LVOT Diameter 2.0 cm LV Ejection Fraction 2D Teich 66.8 % LV Ejection Fraction MOD 2C 71.6 % LV Ejection Fraction 2C AL 71.3 % LA Diameter 3.1 cm LA Width 3.7 cm LA Height 4.2 cm RA Width 3.3 cm RA Height 4.3 cm Aorta at Sinotubular Diameter 2.6 cm M-MODE Aortic Annulus Diameter 3.7 cm LA Ao Ratio MM 0.9 DOPPLER AV Peak Velocity 100.0 cm/s LVOT Peak Velocity 97.0 cm/s AV Area Cont Eq vti 2.9 cm squared AV Area Cont Eq pk 3.0 cm squared MV Area PHT 3.5 cm squared Mitral E to A Ratio 0.9 MV E' Velocity 43.0 cm/s Mitral E to MV E' Ratio 7.6 Mitral E to LV E' Lateral Ratio 8.2 Mitral E to LV E' Septal Ratio 7.2 TR Peak Velocity 126.0 cm/s TR Peak Gradient 6.4 mmHg TV Peak E Velocity 79.0 cm/s Right Atrial Pressure 3.0 mmHg Pulmonary Artery Systolic Pressu 9.4 mmHg PV Peak Velocity 68.0 cm/s FINDINGS Left Ventricle Normal left ventricular size. LV systolic function is normal with EF of 55-60%. There is mild hypokinesis of the anterolateral wall. Normal disatolic function is noted. Right Ventricle The right ventricle is normal in size and function. Right Atrium The right atrium is normal in size. Left Atrium The left atrium is normal in size. Mitral Valve Structurally normal mitral valve without significant stenosis or prolapse. There is no mitral regurgitation. Aortic Valve Structurally normal aortic valve without significant sclerosis or stenosis. There is no aortic regurgitation. Tricuspid Valve Structurally normal tricuspid valve without significant stenosis or regurgitation. Pulmonary artery systolic pressure is normal. Pulmonic Valve Structurally normal pulmonic valve without significant stenosis. There is no pulmonic regurgitation. Pericardium Normal pericardium without effusion. Aorta Normal ascending aorta dimension. CONCLUSIONS LV systolic function is normal with EF of 55-60% There is mild hypokinesis of the aterolateral wall Diastolic function is normal No significant valvular heart disease No comparison studies are available Stan Cottrell MD (Electronically Signed) Final Date: 24 November 2020 11:09 S
[2020-11-23] MEDS: atorvastatin 40 mg Tablet 80 MG PO (11:06)
[2020-11-23] MEDS: metoprolol succinate ER (24 HR) 25 mg Tablet 12.5 MG PO (11:06)
[2020-11-23] MEDS: aspirin 81 mg EC Tablet PO (11:06)
--- NOTE | 2020-11-23 11:34 | P.PN_ITS ---
Subjective Subjective: Interval history: Admitted overnight. Underwent revascularization to floweree with cardiovascular team today. Tolerated procedure well. Does not have any chest pain right now. Denies any nausea vomiting, headache. Vitals/I&O/Wt Last Vital Signs Temp 97.7 F 11/23/20 09:11 Pulse 66 11/23/20 11:30 Resp 13 11/23/20 11:30 BP 125/84 11/23/20 11:30 Pulse Ox 97 11/23/20 11:30 Weight last 48 hrs Weight 83.461 kg Physical Exam Narrative: EXAM NARRATIVE: GENERAL: Patient is alert, awake and oriented x3. [] NECK: No jugular vein distension. [] HEENT: No cyanosis. No icterus. No pallor. [] HEART: Regular S1 and S2. No murmur, rub or gallop. [] LUNGS: Clear to auscultate bilaterally. [] ABDOMEN: Soft, nontender and nondistended. Positive bowel sounds. No guarding, rebound or tenderness. [] CENTRAL NERVOUS SYSTEM: Grossly nonfocal. [] EXTREMITIES: Lower extremities with 1+ edema bilaterally. Pulses palpable in the lower extremities, both dorsalis pedis and posterior tibial. [] Data : 11/22/20 16:43 11/23/20 06:29 A&P Assessment and plan (1) Non-ST elevation GA (NSTEMI): Status: Acute Additional A&P Information NSTEMI: Post PCI to floweree. Continue with aspirin, Plavix, statin. Check lipid panel, A1c. Check echocardiogram. Urine drug screen negative. Check TSH. Continue with metoprolol 12.5 succinate. Start patient on lisinopril oral from tomorrow depending on the blood pressures. Transfer to CSU when bed available. Chronic smoker: Discussed in detail for need to smoking cessation given CAD and post PCI status now. Patient verbalized understanding. Also offered any help regarding cessation if needed. Patient has nicotine patch for now. Full code. Lovenox for DVT prophylaxis. Cardiac diet. Attestations Medical Necessity Statement*: Need for hospitalization for management of non- ST elevation GA, post PCI to floweree. Time Spent in Patient Care: Greater than 35 minutes (>than 50% of time spent in counselling and/or direct pt care on unit) . Coding Level of Care Code Acute Driver/Refuse Collector for Matthew Ferguson Diagnoses Non-ST elevation GA (NSTEMI) I21.4
[2020-11-23 12:36] LABS: Iron 55 ug/dL (59-158); Percent Saturation 18.9 % (20-50); Thyroid Stimulating Hormone 1.48 uIU/mL (0.27-4.20); Total Iron Binding Capacity 291 mcg/dl; Unsaturated Iron Binding 236 ug/dL (112-347)
[2020-11-23] MEDS: temazepam 15 mg Capsule PO (21:04)
[2020-11-23] MEDS: nicotine 21 mg Patch 1 PATCH TRANSDERMA (21:09)
[2020-11-24] VITALS (11 sets, daily range): BP systolic 106–133; BP diastolic 63–92; PULSE 57–82; RESP 14–19; TEMP 36.5; O2SAT 94–98
[2020-11-24] MEDS: sodium chloride 0.9% 1,000 ML 100 ML IV (01:54)
[2020-11-24 02:49] LABS: Basophils # 0.1 10^3/uL (0.0-0.1); Basophils % 0.7 %; Eosinophils # 0.2 10^3/uL (0.0-0.8); Eosinophils % 1.1 %; Hematocrit 50.3 % (42.0-52.0); Hemoglobin 16.3 g/dL (11.7-16.6); Lymphocytes # 3.7 10^3/uL (0.8-4.8); Lymphocytes % 19.4 %; Mean Corpuscular HGB Conc 32.4 g/dL (30.0-36.0); Mean Corpuscular Hemoglobin 29.4 pg (28.0-34.0); Mean Corpuscular Volume 90.6 fL (80-94); Mean Platelet Volume 9.5 fL (7.4-10.4); Monocytes # 1.2 10^3/uL (0.2-0.9); Monocytes % 6.5 %; Neutrophils # 13.67 10^3/uL (1.8-7.7); Neutrophils % 71.9 %; Nucleated Red Blood Cells % 0 %; Platelet Count 791 10^3/cmm (130-400); Red Blood Count 5.55 10^6/uL (4.1-5.3); Red Cell Distribution Width 14.7 % (12.1-15.1)
[2020-11-24 02:50] LABS: Estmated Average Glucose 105; Hemoglobin A1C 5.3 % (4.0-6.0)
[2020-11-24 03:05] LABS: Alanine Aminotransferase 24 U/L (0-41); Albumin Level 3.7 g/dL (3.5-5.2); Alkaline Phosphatase 102 IU/L (40-130); Anion Gap 12.9 (5-19); Aspartate Amino Transferase 50 U/L (0-40); Blood Urea Nitrogen 10 mg/dL (6-20); Calcium 8.6 mg/dL (8.5-10.5); Carbon Dioxide 24 mmol/L (22-29); Chloride 105 mmol/L (98-107); Globulin 2.4 g/dL (1.3-4.6); Glomerular Filtration Rate 105.5 mL/min (90-130); Glucose 91 mg/dL (65-115); Osmolality Calculated 285 mOsm/kg (285-295); Potassium 3.9 mmol/L (3.5-5.1); Sodium 138 mmol/L (136-145); Total Bilirubin 0.5 mg/dL (0.15-1.2); Total Protein 6.1 g/dL (6.6-8.7)
--- NOTE | 2020-11-24 07:53 | P.PN_ITS ---
Subjective Subjective: Interval history: Patient is doing well. No complaints of chest pain, shortness of breath or palpitations. Vitals/I&O/Wt Last Vital Signs Temp 97.7 F 11/23/20 09:11 Pulse 61 11/24/20 05:59 Resp 16 11/24/20 04:00 BP 114/87 11/24/20 04:00 Pulse Ox 97 11/24/20 04:00 11/23/20 11/24/20 11/24/20 22:59 06:59 14:59 Intake Total 956.667 / 6860.399 9778 / 2356.667 Output Total 500 / 950 Balance 456.667 / 614.433 8839 / 1406.667 Weight last 48 hrs Weight 184 lb Physical Exam Narrative: EXAM NARRATIVE: GENERAL: Patient is alert, awake and oriented x3. [] NECK: No jugular vein distension. [] HEENT: No cyanosis. No icterus. No pallor. [] HEART: Regular S1 and S2. No murmur, rub or gallop. [] LUNGS: Clear to auscultate bilaterally. [] ABDOMEN: Soft, nontender and nondistended. Positive bowel sounds. No guarding, rebound or tenderness. [] CENTRAL NERVOUS SYSTEM: Grossly nonfocal. [] EXTREMITIES: Lower extremities with 1+ edema bilaterally. Pulses palpable in the lower extremities, both dorsalis pedis and posterior tibial. [] Data : 11/24/20 00:57 11/24/20 00:57 A&P Assessment and plan (1) Non-ST elevation SD (NSTEMI): Status: Acute (2) Tobacco abuse: Status: Acute Patient had non-ST elevation SD. Underwent coronary angiogram yesterday that revealed to severe thrombotic stenosis of diagonal artery. He underwent successful revascularization with YULI x1. Continue aspirin and Plavix High intensity statin therapy ECHO showed preserved LV systolic function with hypokinesis of the anterolateral wall. Thank you for involving us with the care of this patient. We will continue to follow. Please call with questions. Attestations Medical Necessity Statement*: Care expected to cross 2 midnights. Coding Level of Care Code Acute Integrated Program Teacher for Matthew Ferguson Diagnoses Non-ST elevation SD (NSTEMI) I21.4 Tobacco abuse Z72.0
[2020-11-24] MEDS: aspirin 81 mg EC Tablet PO (08:27)
[2020-11-24] MEDS: clopidogrel 75 mg Tablet PO (08:27)
[2020-11-24] MEDS: lisinopril 10 mg Tablet PO (08:28)
[2020-11-24] MEDS: metoprolol succinate ER (24 HR) 25 mg Tablet 12.5 MG PO (08:28)
[2020-11-24] MEDS: atorvastatin 40 mg Tablet 80 MG PO (08:28)
[2020-11-24] MEDS: nicotine 21 mg Patch 1 PATCH TRANSDERMA (08:32)
--- NOTE | 2020-11-24 08:58 | PC.RESP ---
SMOKING CESSATION INFORMATION SENT TO PATIENT.
--- NOTE | 2020-11-24 10:21 | P.DS_ITS ---
Discharge Providers Date of Admission: 11/23/20 03:53 Date of Discharge: November 24, 2020 Attending Provider at Admission: Tres Marie MD Attending Provider at Discharge: Sixto Zepeda MD Consults: Cardiology: Dr. Cottrell Primary Care Provider: AYAZ Ferrell Diagnoses at Discharge Discharge Diagnosis (1) Non-ST elevation MD (NSTEMI): Status: Acute (2) Tobacco abuse: Status: Acute (3) Right bundle branch block: Status: Acute (4) MVP (mitral valve prolapse): Status: Acute Reason for Visit Reason for Visit: Hospital Course Hospital Course Mg Pritchett is a 45 year old male who presented today with chief complaint of chest pain. Patient is stating that he was mowing his lawn yesterday when he started experiencing chest discomfort which he is describing as burning sensation, he attributed his symptoms initially to GERD, at home he took Pepto- Bismol but his symptoms persisted. He was describing his pain as mild burning which stayed all night and in the morning when he woke up he noticed similar complaints, his and mother convinced him to go to his PCP and get evaluated. At the clinic he was given 1 sublingual nitroglycerin, and loading dose of aspirin which relieved his chest discomfort and he was asked to go to the ER for further evaluation. He is denying orthopnea, PND, shortness of breath, nausea, vomiting, diaphoresis. 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 Endorses family history of premature coronary artery disease. His brother who was 37 years of age when he had an MD and sudden cardiac arrest. Extubate him to the hospital for management Patient went to the hospital for management of Non-ST elevation MD. Cardiology was consulted underwent cardiac angiogram on November 23, 2020. He underwent successful revascularization of diagonal artery. His hospital stay and procedure were unremarkable. He did not have any further chest pain. His cardiac medications were adjusted. He is being discharged in medically stable condition advised to follow-up with a primary care provider within next 1 week and Ai Villanueva within next 1 week and cardiology office in next 1 month. He was counseled multiple times in detail for cessation of smoking. Physical Exam Narrative: EXAM NARRATIVE: GENERAL: Patient is alert, awake and oriented x3. [] NECK: No jugular vein distension. [] HEENT: No cyanosis. No icterus. No pallor. [] HEART: Regular S1 and S2. No murmur, rub or gallop. [] LUNGS: Clear to auscultate bilaterally. [] ABDOMEN: Soft, nontender and nondistended. Positive bowel sounds. No guarding, rebound or tenderness. [] CENTRAL NERVOUS SYSTEM: Grossly nonfocal. [] EXTREMITIES: Lower extremities with 1+ edema bilaterally. Pulses palpable in the lower extremities, both dorsalis pedis and posterior tibial. 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 echo complete * [id number] Routine Ultrasound 11/23/20 09:34 Taken Labs from last 24 hours 11/24/20 11/24/20 11/24/20 00:57 00:57 00:57 WBC 19.0 H RBC 5.55 H Hgb 16.3 Hct 50.3 MCV 90.6 MCH 29.4 MCHC 32.4 RDW 14.7 Plt Count 791 H MPV 9.5 Neut % (Auto) 71.9 Lymph % (Auto) 19.4 [place] % (Auto) 6.5 Eos % (Auto) 1.1 Baso % (Auto) 0.7 Neut # (Auto) 13.67 H Lymph # (Auto) 3.7 [place] # (Auto) 1.2 H Eos # (Auto) 0.2 Baso # (Auto) 0.1 Nucleated RBC % (a uto) 0 Nucleated RBCs # 0.0 Sodium 138 Potassium 3.9 Chloride 105 Carbon Dioxide 24 Anion Gap 12.9 BUN 10 Creatinine 0.8 GFR Calculation 105.5 Glucose 91 Estimat Average Gl ucose 105 Hemoglobin A1c 5.3 Calculated Osmolal ity 285 Calcium 8.6 Iron TIBC % Saturation Unsat Iron Binding Total Bilirubin 0.5 AST 50 H ALT 24 Alkaline Phosphata se 102 Total Protein 6.1 L Albumin 3.7 Globulin 2.4 TSH 11/23/20 11/23/20 06:29 06:29 WBC RBC Hgb Hct MCV MCH MCHC RDW Plt Count MPV Neut % (Auto) Lymph % (Auto) [place] % (Auto) Eos % (Auto) Baso % (Auto) Neut # (Auto) Lymph # (Auto) [place] # (Auto) Eos # (Auto) Baso # (Auto) Nucleated RBC % (a uto) Nucleated RBCs # Sodium Potassium Chloride Carbon Dioxide Anion Gap BUN Creatinine GFR Calculation Glucose Estimat Average Gl ucose Hemoglobin A1c Calculated Osmolal ity Calcium Iron 55 L Cancelled TIBC 291 Cancelled % Saturation 18.9 L Cancelled Unsat Iron Binding 236 Cancelled Total Bilirubin AST ALT Alkaline Phosphata se Total Protein Albumin Globulin TSH 1.48 Addt'l Data from Hospital Stay: Laboratory Results WBC 19.0 10^3/uL (4.0 -10.0) H 11/24/20 00:57 RBC 5.55 10^6/uL (4.1 -5.3) H 11/24/20 00:57 Hgb 16.3 g/dL (11.7-1 6.6) 11/24/20 00:57 Hct 50.3 % (42.0-52.0 ) 11/24/20 00:57 MCV 90.6 fL (80-94) 07 00:57 MCH 29.4 pg (28.0-34. 0) 07 00:57 MCHC 32.4 g/dL (30.0-3 6.0) 11/24/20 00:57 RDW 14.7 % (12.1-15.1 ) 11/24/20 00:57 Plt Count 791 10^3/cmm (130 -400) H 11/24/20 00:57 MPV 9.5 fL (7.4-10.4) 11/24/20 00:57 Neut % (Auto) 71.9 % 11/24/20 00:57 Lymph % (Auto) 19.4 % 11/24/20 00:57 [place] % (Auto) 6.5 % 11/24/20 00:57 Eos % (Auto) 1.1 % 11/24/20 00:57 Baso % (Auto) 0.7 % 11/24/20 00:57 Neut # (Auto) 13.67 10^3/uL (1. 8-7.7) H 11/24/20 00:57 Lymph # (Auto) 3.7 10^3/uL (0.8- 4.8) 11/24/20 00:57 [place] # (Auto) 1.2 10^3/uL (0.2- 0.9) H 11/24/20 00:57 Eos # (Auto) 0.2 10^3/uL (0.0- 0.8) 11/24/20 00:57 Baso # (Auto) 0.1 10^3/uL (0.0- 0.1) 11/24/20 00:57 Nucleated RBC % (a uto) 0 % 11/24/20 00:57 Nucleated RBCs # 0.0 /100WBC 11/24/20 00:57 Sodium 138 mmol/L (136-1 45) 11/24/20 00:57 Potassium 3.9 mmol/L (3.5-5 .1) 11/24/20 00:57 Chloride 105 mmol/L (98-10 7) 11/24/20 00:57 Carbon Dioxide 24 mmol/L (22-29) 11/24/20 00:57 Anion Gap 12.9 (5-19) 11/24/20 00:57 BUN 10 mg/dL (6-20) 11/24/20 00:57 Creatinine 0.8 mg/dL (0.7-1. 2) 11/24/20 00:57 GFR Calculation 105.5 mL/min (90- 130) 11/24/20 00:57 Glucose 91 mg/dL (65-115) 11/24/20 00:57 Estimat Average Gl ucose 105 11/24/20 00:57 Hemoglobin A1c 5.3 % (4.0-6.0) 11/24/20 00:57 Calculated Osmolal ity 285 mOsm/kg (285- 295) 11/24/20 00:57 Calcium 8.6 mg/dL (8.5-10 .5) 11/24/20 00:57 Iron 55 ug/dL (59-158) L 11/23/20 06:29 Iron Cancelled 11/23/20 06:29 TIBC 291 mcg/dl 11/23/20 06:29 TIBC Cancelled 11/23/20 06:29 % Saturation 18.9 % (20-50) L 11/23/20 06:29 % Saturation Cancelled 07/01/21 06:29 Unsat Iron Binding 236 ug/dL (112-34 7) 11/23/20 06:29 Unsat Iron Binding Cancelled 11/23/20 06:29 Total Bilirubin 0.5 mg/dL (0.15-1 .2) 11/24/20 00:57 AST 50 U/L (0-40) H 11/24/20 00:57 ALT 24 U/L (0-41) 11/24/20 00:57 Alkaline Phosphata se 102 IU/L (40-130) 11/24/20 00:57 Troponin T Baselin e 75 ng/L (0-15) H 11/22/20 16:43 Troponin T 120 Min faby 126.3 ng/L (0-15) H 11/22/20 18:43 Delta Troponin T 51.3 ABS# (0-10) H* 11/22/20 18:43 Troponin T Hi Sens 6Hr 234.3 ng/L (0-15) H 11/22/20 22:37 Troponin T Hi Sens 6Hr Delta 159.3 ng/L (0-12) H* 11/22/20 22:37 Total Protein 6.1 g/dL (6.6-8.7 ) L 11/24/20 00:57 Albumin 3.7 g/dL (3.5-5.2 ) 11/24/20 00:57 Globulin 2.4 g/dL (1.3-4.6 ) 11/24/20 00:57 Triglycerides 100 mg/dL (0-150) 11/22/20 19:05 Cholesterol 152 mg/dL (0-200) 11/22/20 19:05 LDL Cholesterol, C alc 100 mg/dL (50-129 ) 11/22/20 19:05 HDL Cholesterol 32 mg/dL (60-100) L 11/22/20 19:05 LDL/HDL Ratio 3.13 RATIO (0.00- 3.22) 11/22/20 19:05 Cholesterol/HDL Ra jessica 4.75 mg/dL (1.0-5 .00) 11/22/20 19:05 TSH 1.48 uIU/mL (0.27 -4.20) 11/23/20 06:29 Urine Opiates Scre en Negative ng/mL (N egative) 11/23/20 00:40 Ur Barbiturates Sc reen Negative ng/mL (N egative) 11/23/20 00:40 Ur Phencyclidine S crn Negative ng/mL (N egative) 11/23/20 00:40 Ur Amphetamines Sc reen Negative ng/mL (N egative) 11/23/20 00:40 U Benzodiazepines Scrn Negative ng/mL (N egative) 11/23/20 00:40 Urine Cocaine Scre en Negative ng/mL (N egative) 11/23/20 00:40 U Marijuana (THC) Screen Positive ng/mL (N egative) H 11/23/20 00:40 Impressions Chest X-Ray 11/22/20 14:08 Impression: Negative chest. Vitals: Last Vital Signs Temp 97.7 F 11/23/20 09:11 Pulse 68 11/24/20 08:00 Resp 14 11/24/20 08:00 BP 114/67 11/24/20 08:00 Pulse Ox 97 11/24/20 08:00 Discharge Plan Discharge Patient Disposition: Home Condition: Stable Prescriptions: New atorvastatin 40 mg Tablet 80 mg PO DAILY 30 Days Qty: 60 RF: 0 clopidogrel 75 mg Tablet 75 mg PO DAILY Qty: 30 RF: 0 aspirin 81 mg Tablet,Delayed Release (Dr/Ec) 81 mg PO DAILY 30 Days Qty: 30 RF: 0 lisinopril 10 mg Tablet 10 mg PO DAILY Qty: 30 RF: 0 metoprolol succinate 25 mg Tablet Extended Release 24 Hr 12.5 mg PO DAILY Qty: 30 RF: 0 No Action No Known Home Medications RF: 0 Discharge Orders: Discharge Order (Routine); Ordered 11/24/20 Ordered By: Sixto Zepeda Referrals: Stan Cottrell M.D [Physician] - 1 month Sue Mathews FNP [Primary Care Provider] - 7-10 days Ai Villanueva FNP [Nurse Practitioner] - 4-7 days Discharge Diet: Cardiac Discharge Activity: Resume usual activity Patient Instructions: Opioid Safety Activity Restrictions/Additional Instructions: Please follow-up with your primary care provider within next 1 week. Please follow-up with Ai Villanueva next 4 to 7 days. Please continue to work on smoking cessation as discussed in detail. Discharge Attestations Time Spent in Discharge Care*: greater than 30 min Specific Discharge Activities: educating patient, educating and/or supporting family/caregiver, discussing with pcp/other providers, discussing with correctional case records supervisor/social workers/dc planners, documenting/other paperwork and evaluating patient/reviewing data Time Spent in Smoking Cessation: more than 10 minutes Status at Discharge: Cognitive status at discharge: cognitively intact , Behavioral status at discharge: cooperative , Functional status at discharge: independent ambulation Overall status at discharge: patient is back to baseline Quality Metrics Clinical Quality Measures During this hospital stay, did patient experience: AMI Clinical Trial Participant: No Contraindication to aspirin (AMI): Aspirin given Contraindicat ion to statin: Statin prescribed Contraindication to PCI: PCI performed Coding Level of Care Code Acute [facility] DC note Diagnoses Non-ST elevation MD (NSTEMI) I21.4 Tobacco abuse Z72.0 Right bundle branch block I45.10 MVP (mitral valve prolapse) I34.1
--- NOTE | 2020-11-24 10:54 | PC.NURSE ---
iv removed whole and intact at this time for discharge
[2020-11-24 11:07] LABS: LAB Peripheral Smear Sent for Review
== END 2020-11-24 11:21 | disposition home or self-care (01) | DRG 247 ==
LOC: ER 20:10 → ICU 11-23 07:43
PROVIDERS: Family Medicine; Internal Medicine; Admitting Provider Internal Medicine; Emergency Provider Emergency Medicine; PCP Nurse Practitioner Family; Visit Provider Student in an Organized Health Care Education/Training Program
PROC: B211YZZ Fluoroscopy of Multiple Coronary Arteries using Other Contrast (ICD-10-PCS; principal; 2020-11-23 10:00)
PROC: B211YZZ Fluoroscopy of Multiple Coronary Arteries using Other Contrast (ICD-10-PCS; 2020-11-23 10:00)
DX: I21.4 Non-ST elevation (NSTEMI) myocardial infarction (principal); I25.110 Atherosclerotic heart disease of native coronary artery with unstable angina pectoris; I34.1 Nonrheumatic mitral (valve) prolapse; I45.10 Unspecified right bundle-branch block; F17.210 Nicotine dependence, cigarettes, uncomplicated; Z82.49 Family history of ischemic heart disease and other diseases of the circulatory system
CPT/HCPCS: 36415; 71045; 80048; 80053; 80061; 80306; 80500; 83036; 83540; 83550; 84443; 84484; 85025; 85347; 93005; 93306; 93454; 96372; 99285; C1725; C1769; C1874; C1887; C1894; C9600; J1644; J1650; J2250; J3010; J3490; J7030; Q9967

== ENCOUNTER → 2020-11-29 15:25 | Outpatient (BNVA) | payer SELFPAY | PROVIDERS: PCP Nurse Practitioner Family; Visit Provider Nurse Practitioner Family | DX: I21.4 Non-ST elevation (NSTEMI) myocardial infarction (principal); Z72.0 Tobacco use; D72.829 Elevated white blood cell count, unspecified | CPT/HCPCS: 80500; 85025 ==

== ENCOUNTER → 2020-12-04 11:12 | Outpatient (BNVA) | payer SELFPAY | PROVIDERS: PCP Nurse Practitioner Family; Visit Provider Nurse Practitioner Family | DX: I25.119 Atherosclerotic heart disease of native coronary artery with unspecified angina pectoris (principal); Z79.899 Other long term (current) drug therapy | CPT/HCPCS: 80048 ==

== ENCOUNTER 2021-11-27 16:54 | Emergency (ER) | payer SELFPAY ==
[2021-11-27 17:00] VITALS: BP 136/93; PULSE 83; RESP 18; TEMP 36.8; O2SAT 94; BMI 24.7
--- NOTE | 2021-11-27 17:24 | XRR_ITS ---
PROCEDURE INFORMATION: Exam: XR Chest Exam date and time: 11/27/2021 5:56 PM Age: 46 years old Clinical indication: Chest wall pain; Additional info: Chest pain TECHNIQUE: Imaging protocol: Radiologic exam of the chest. Views: 1 view. COMPARISON: CR XR chest 1V portable [id number] 11/22/2020 2:49 PM FINDINGS: Lungs: Unremarkable. No consolidation. Pleural spaces: Unremarkable. No pleural effusion. No pneumothorax. Heart/Mediastinum: Unremarkable. No cardiomegaly. Bones/joints: Unremarkable. XR/XR chest 1V portable [id number] IMPRESSION: No acute findings.
--- NOTE | 2021-11-27 17:31 | ED_ITS ---
HPI - Chest Pain General: Chief Complaint: Chest Pain Stated Complaint: Chest pains Time Seen by Provider: 11/27/21 17:24 History of Present Illness: 46-year-old male patient comes in today with complaints of intermittent chest discomfort. Patient had chest pain about 1 year ago in which she was evaluated and 2 stents were placed in his heart. Patient use medications for approximately 6 months after the procedure but since then has not been using any medication. Patient does occasionally use aspirin and ibuprofen for pain and discomfort. Patient reports starting about 1:00 last night he started having chest discomfort and tried aspirin and Maalox with minimal to no relief. Patient reports the pain is just intermittent at times. Patient denies any surgeries, or other medical problems. Associated symptoms: Reports nausea; Deny dyspnea, fever(s) or vomiting Review of Systems General: Reports: 10 or more systems reviewed and unremarkable except in HPI and below Const: Denies: fever(s) Card: Reports: chest pain Resp: Denies: dyspnea GI: Reports: nausea and diarrhea; Denies: vomiting : Denies: difficulty urinating Musc: Denies: extremity pain Skin/Breast: Denies: rash Neuro: Denies: headache(s) PFS ED PFSH: Medical History Coronary artery disease MVP (mitral valve prolapse) Right bundle branch block Tobacco abuse Surgical History No pertinent past surgical history S/P coronary artery stent placement First diagonal S/P nasal surgery Family History Brother , age 37; [place] CAD (coronary artery disease) Mother CAD (coronary artery disease) Social History Smoking and tobacco status: current every day smoker cigarettes Packs smoked per day: 1 Years cigarettes smoked: 25 Second hand smoke exposure: Yes Alcohol intake: current Alcohol intake frequency: holidays/special occasions only Caregiver/support person: Yes Lives independently: Yes Household members: spouse Marital status: service: No Current occupational status: employed History of recent travel: No Current gender identity: Male Physical Exam Const: COMMON NORMALS: alert HENMT: COMMON NORMALS: normocephalic HEAD & SCALP: normocephalic Neck/C-Spine: GENERAL: Yes normal visual inspection Chest: COMMONS NORMALS: normal inspection of the chest Resp: COMMON NORMALS: normal respiratory effort and clear to auscultation bi laterally AUSCULTATION: clear to auscultation bilaterally Cardio: COMMON NORMALS: regular rate, regular rhythm, S1 normal heart sound present and S2 normal heart sound present RATE: regular rate RHYTHM: regular rhythm HEART SOUNDS: S1 normal heart sound present and S2 normal heart sound present GI: COMMON NORMALS: Soft to palpation and non-tender PALPATION: Yes Soft to palpation : COMMON NORMALS: Yes no CVA tenderness BLADDER/KIDNEY EXAM: Yes no CVA tenderness Back/Pelvis: COMMON NORMALS: no CVA tenderness Extremity: COMMON NORMALS: normal to inspection and full ROM Neuro: SENSORIUM/ORIENTATION: Yes alert Skin: COMMON NORMALS: no rashes or lesions noted GENERAL SKIN EXAM: no rashes or lesions noted Course Vital Signs: Vital signs: Vital Signs Temperature 98.3 F 11/27/21 17:00 Pulse Rate 83 11/27/21 17:00 Respiratory Rate 18 11/27/21 17:00 Blood Pressure 136/93 11/27/21 17:00 Pulse Oximetry 94 11/27/21 17:00 MDM - Chest Pain Medical Decision Making 46-year-old male patient comes in today for complaints of some intermittent chest discomfort starting last night. Patient reports nothing makes the pain better or worse. On exam lungs are clear to auscultation. Vital signs are normal. Patient did have some right upper quadrant abdominal tenderness on deep palpation. Differential diagnosis includes ACS, stable angina, gastritis, cholecystitis. Laboratory values were unremarkable. Patient does have a high platelet count which is normal for him. Reviewed exam with patient with joe mmendations for medications including aspirin daily and restart metoprolol tartrate. Also recommended follow-up appointment with cardiology for further evaluation and consideration of stress test. Patient reported understanding and agreed to plan. Lab Data : 11/27/21 17:50 11/27/21 17:50 Radiology Impressions Chest X-Ray 11/27/21 17:24 IMPRESSION: No acute findings. Laboratory Results WBC 13.6 10^3/uL (4.0-10.0) H 11/27/21 17:50 RBC 5.21 10^6/uL (4.1-5.3) 11/27/21 17:50 Hgb 16.1 g/dL (11.7-16.6) 11/27/21 17:50 Hct 47.4 % (42.0-52.0) 11/27/21 17:50 MCV 91.0 fl (80-94) 11/27/21 17:50 MCH 30.9 pg (28.0-34.0) 11/27/21 17:50 MCHC 34.0 g/dL (30.0-36.0) 11/27/21 17:50 RDW 13.8 % (12.1-15.1) 11/27/21 17:50 Plt Count 887 10^3/cmm (130-400) H 11/27/21 17:50 MPV 9.1 fL (7.4-10.4) 11/27/21 17:50 Neut % (Auto) 70.1 % 11/27/21 17:50 Lymph % (Auto) 21.1 % 11/27/21 17:50 Placer % (Auto) 5.8 % 11/27/21 17:50 Eos % (Auto) 1.5 % 11/27/21 17:50 Baso % (Auto) 0.8 % 11/27/21 17:50 Neut # (Auto) 9.49 10^3/uL (1.8-7.7) H 11/27/21 17:50 Lymph # (Auto) 2.9 10^3/uL (0.8-4.8) 11/27/21 17:50 Placer # (Auto) 0.8 10^3/uL (0.2-0.9) 11/27/21 17:50 Eos # (Auto) 0.2 10^3/uL (0.0-0.8) 11/27/21 17:50 Baso # (Auto) 0.1 10^3/uL (0.0-0.1) 11/27/21 17:50 Nucleated RBC % (auto) 0 % 11/27/21 17:50 Nucleated RBCs # 0.0 /100WBC 11/27/21 17:50 Sodium 139 mmol/L (136-145) 11/27/21 17:50 Potassium 3.7 mmol/L (3.5-5.1) 11/27/21 17:50 Chloride 99 mmol/L (98-107) 11/27/21 17:50 Carbon Dioxide 26 mmol/L (22-29) 11/27/21 17:50 Anion Gap 17.7 (5-19) 11/27/21 17:50 BUN 17 mg/dL (6-20) 11/27/21 17:50 Creatinine 0.9 mg/dL (0.7-1.2) 11/27/21 17:50 GFR Calculation 91.7 mL/min (90-130) 11/27/21 17:50 Glucose 106 mg/dL (65-115) 11/27/21 17:50 Calculated Osmolality 290 mOsm/kg (285-295) 11/27/21 17:50 Calcium 9.5 mg/dL (8.5-10.5) 11/27/21 17:50 Total Bilirubin 0.2 mg/dL (0.15-1.2) 11/27/21 17:50 AST 17 U/L (0-40) 11/27/21 17:50 ALT 20 U/L (0-41) 11/27/21 17:50 Alkaline Phosphatase 111 IU/L (40-130) 11/27/21 17:50 Troponin T Baseline 6 ng/L (0-15) 11/27/21 17:50 NT-Pro-B Natriuret Pep 32 pg/mL (0-125) 11/27/21 17:50 Total Protein 7.2 g/dL (6.6-8.7) 11/27/21 17:50 Albumin 4.6 g/dL (3.5-5.2) 11/27/21 17:50 Globulin 2.6 g/dL (1.3-4.6) 11/27/21 17:50 Lipase 40 U/L (13-60) 11/27/21 17:50 EKG Data EKG 1: EKG interpretation date: 11/27/21 EKG interpretation time: 17:52 Interpretation: EKG shows a sinus rhythm with a regular rate [address] elevation or ectopy is noted. Prior exam was not available for comparison at this time. Discharge Plan Discharge Patient Disposition: Home Clinical Impression: Chest pain Qualifiers: Chest pain type: unspecified Qualified Code(s): R07.9 - Chest pain, unspecified Coronary artery disease Qualifiers: Coronary Disease-Associated Artery/Lesion type: unspecified vessel or lesion type [place] vs. transplanted heart: [place] heart Associated angina: with stable angina Qualified Code(s): I25.118 - Atherosclerotic heart disease of [place] coronary artery with other forms of angina pectoris Condition: Stable Prescriptions: No Action clopidogrel 75 mg tablet 75 mg PO DAILY Qty: 90 3RF lisinopril 10 mg tablet 10 mg PO DAILY Qty: 90 3RF metoprolol succinate 25 mg tablet extended release 24 hr 12.5 mg PO DAILY Qty: 45 3RF atorvastatin 80 mg tablet 80 mg PO DAILY Qty: 90 3RF Discharge Orders: Discharge ED (Routine); Ordered 11/27/21 Ordered By: George Weiss Referrals: Sue Mathews FNP [Primary Care Provider] - Discharge Diet: Usual diet Discharge Activity: Increase activity as tolerated Patient Instructions: Chest Pain (ED) Activity Restrictions/Additional Instructions: Home and rest. Drink plenty of fluids. Restart aspirin and medications as dir ected. Follow-up with core dipper. I have placed a case management request to help with that appointment. Return to ER for worsening symptoms or new concerns. Coding Level of Care Code ED Marketing Project Specialist for Matthew Ferguson Exam Comprehensive
[2021-11-27 17:56] LABS: Basophils # 0.1 10^3/uL (0.0-0.1); Basophils % 0.8 %; Eosinophils # 0.2 10^3/uL (0.0-0.8); Eosinophils % 1.5 %; Hematocrit 47.4 % (42.0-52.0); Hemoglobin 16.1 g/dL (11.7-16.6); Lymphocytes # 2.9 10^3/uL (0.8-4.8); Lymphocytes % 21.1 %; Mean Corpuscular Hemoglobin 30.9 pg (28.0-34.0); Mean Platelet Volume 9.1 fL (7.4-10.4); Monocytes # 0.8 10^3/uL (0.2-0.9); Monocytes % 5.8 %; Neutrophils # 9.49 10^3/uL (1.8-7.7); Neutrophils % 70.1 %; Nucleated Red Blood Cells % 0 %; Platelet Count 887 10^3/cmm (130-400); Red Blood Count 5.21 10^6/uL (4.1-5.3); Red Cell Distribution Width 13.8 % (12.1-15.1); White Blood Count 13.6 10^3/uL (4.0-10.0)
[2021-11-27] MEDS: nitroglycerin 1 gm/inch oint Pkt 0.5 INCH TOPICAL (18:02)
[2021-11-27] MEDS: aspirin 81 mg Chew Tablet 162 MG PO (18:14)
[2021-11-27 18:19] LABS: Troponin(5th) Baseline 6 ng/L (0-15)
[2021-11-27 18:27] LABS: Alanine Aminotransferase 20 U/L (0-41); Albumin Level 4.6 g/dL (3.5-5.2); Alkaline Phosphatase 111 IU/L (40-130); Anion Gap 17.7 (5-19); Aspartate Amino Transferase 17 U/L (0-40); Blood Urea Nitrogen 17 mg/dL (6-20); Calcium 9.5 mg/dL (8.5-10.5); Carbon Dioxide 26 mmol/L (22-29); Chloride 99 mmol/L (98-107); Globulin 2.6 g/dL (1.3-4.6); Glomerular Filtration Rate 91.7 mL/min (90-130); Glucose 106 mg/dL (65-115); Lipase 40 U/L (13-60); NT Pro B Type Natriuretic Pept 32 pg/mL (0-125); Osmolality Calculated 290 mOsm/kg (285-295); Potassium 3.7 mmol/L (3.5-5.1); Sodium 139 mmol/L (136-145); Total Bilirubin 0.2 mg/dL (0.15-1.2); Total Protein 7.2 g/dL (6.6-8.7)
[2021-11-27 19:01] VITALS: BP 113/76; PULSE 82; RESP 16; O2SAT 95
--- NOTE | 2021-11-29 14:44 | DCPLANNER ---
Addendum entered by Sherley Louie 01/16/22 11:37: Patient had a follow up appointment scheduled for 12.05.21 with [facility] - patient did attend appointment. Addendum entered by Sherley Louie 12/04/21 15:57: Patient has a follow up appointment scheduled for Sunday, December 05, 2021 at 3:[address] Cottrell. Clinic will call patient with appointment information. Original Note: manager protein had message to schedule a follow up appointment with cardiology. manager protein sent patients information to the front office staff at [facility]. Patients information will be printed and reviewed. Clinic will call patient with appointment information.
== END 2021-11-27 19:15 | disposition home or self-care (01) ==
PROVIDERS: Emergency Provider Nurse Practitioner Family; PCP Nurse Practitioner Family
DX: I25.118 Atherosclerotic heart disease of native coronary artery with other forms of angina pectoris (principal); F17.210 Nicotine dependence, cigarettes, uncomplicated; Z95.5 Presence of coronary angioplasty implant and graft; Z79.02 Long term (current) use of antithrombotics/antiplatelets; Z82.49 Family history of ischemic heart disease and other diseases of the circulatory system
CPT/HCPCS: 71045; 80053; 83690; 83880; 84484; 85025; 99285

== ENCOUNTER 2023-08-22 09:42 | Emergency (ER) | payer OTHER, SELFPAY ==
[2023-08-22 10:00] VITALS: BP 143/87; PULSE 88; RESP 16; TEMP 36.5; O2SAT 96
--- NOTE | 2023-08-22 10:03 | ED_ITS ---
HPI - Abdominal Pain 2 General: Chief Complaint: Abdominal Pain Stated Complaint: left side abd pain Time Seen by Provider: 08/22/23 10:00 Source: patient Mode of arrival: ambulatory Limitations: no limitations History of Present Illness: Patient is a 48-year-old male presents to ED today with complaint of left lower abdominal pain that started yesterday after coughing. Patient states since then he has noticed pain. He states pain is controllable with rest or not moving but states when he changes positions, coughs, sneezes, walks he has discomfort. He has not noticed any masses or bulges. He does feel like the area is swollen. He has not had any nausea, vomiting, diarrhea. He is passing gas. No fevers or chills. He has not noticed any rash or skin lesions. He has no tenderness or swelling noted to the scrotum or inguinal region. MD elicited complaint: abdominal pain Pertinent past history: none Onset (ago): day(s) (yesterday) Pain Consistency: constant Location: LLQ Severity: severe Quality: sharp Radiation: none Migration to: no migration Exacerbating factors: movement and other (coughing, sneezing, positional changes) Relieving factors: rest (sitting still) Associated Symptoms: Denies change in bowel habits, chills, diarrhea, dysuria, fever(s), hematuria, nausea and vomiting Review of Systems 2 Const: Denies: fever(s), chills, body aches, fatigue or malaise Card: Denies: chest pain Resp: Denies: dyspnea GI: Reports: abdominal pain; Denies: nausea, vomiting, diarrhea or change in bowel habits : Denies: flank pain, dysuria or hematuria Musc: Denies: back pain Skin/Breast: Denies: rash Neuro: Denies: numbness in extremities, weakness in extremities, sensory changes or dizziness PFSH ED 2 PFSH: Medical History Coronary artery disease Tobacco abuse Right bundle branch block MVP (mitral valve prolapse) Surgical History S/P coronary artery stent placement First diagonal S/P nasal surgery No pertinent past surgical history Family History Brother , age 37; [place] CAD (coronary artery disease) Mother CAD (coronary artery disease) Social History Smoking and tobacco/nicotine status: current every day tobacco/nicotine user cigarettes Packs smoked per day: 1 Years cigarettes smoked: 25 Second hand smoke exposure: Yes Alcohol intake: current Alcohol intake frequency: holidays/special occasions only Substance/Drug Use: current Substance/Drug use frequency: daily Caregiver/support person: Yes Lives independently: Yes Household members: spouse Marital status: service: No Current occupational status: employed Current gender identity: Male Physical Exam 2 Const: COMMON NORMALS: no acute distress, average body habitus, patient oriented x3, no limitations, healthy appearing, alert and well nourished Eye: COMMON NORMALS: no scleral icterus Resp: COMMON NORMALS: normal respiratory effort and clear to auscultation bilaterally AUSCULTATION: clear to auscultation bilaterally Cardio: COMMON NORMALS: regular rate and regular rhythm RATE: regular rate RHYTHM: regular rhythm GI: COMMON NORMALS: Normal to inspection, nondistended, normoactive bowel sounds present, Soft to palpation, No hepatosplenomegaly present and no masses INSPECTION: Yes normal to inspection PALPATION: Yes Soft to palpation, Yes Tenderness to palpation present (GI) Details: LLQ, No Guarding due to palpation present (GI), No Rigid due to palpation and Yes No hepatosplenomegaly present GI image (male): 1. TTP-no obvious defects or hernias appreciated : COMMON NORMALS: Yes no CVA tenderness BLADDER/KIDNEY EXAM: Yes no CVA tenderness Back/Pelvis: COMMON NORMALS: no CVA tenderness, thoracic and lumbar spine normal to inspection and no thoracic nor lumbar tenderness Extremity: GENERAL: Yes normal exam except as noted Neuro: MEGHANN COMA SCALE: document GCS findings Meghann coma scale eye opening: Spontaneous Meghann coma scale verbal response: Orientated [place] coma scale motor response: [place]bey commands [place] coma scale total score: 15 COMMON NORMALS: patient oriented x3 SENSORIUM/ORIENTATION: Yes alert Skin: COMMON NORMALS: no rashes or lesions noted GENERAL SKIN EXAM: no rashes or lesions noted Course 2 Vital Signs: Vital signs: Vital Signs Temperature 97.7 F 08/22/23 10:00 Pulse Rate 82 08/22/23 10:27 Respiratory Rate 16 08/22/23 10:00 Blood Pressure 143/87 08/22/23 10:27 Pulse Oximetry 96 08/22/23 10:27 Oxygen Delivery Me thod Room Air 08/22/23 10:27 MDM - Abdominal Pain Medical Decision Making Patient here for acute onset left lower abdominal pain after coughing yesterday. CBC showing a very mild white count. He does appear to have chronic thrombocytosis dating back to 2020. UA is clear. Chemistry and lipase were hemolyzed. Repeated attempts at redraw were unsuccessful. Patient ultimately declined any further attempts. CT scan impression stating subtle findings suggesting a mild descending and sigmoid colitis. I feel this is probably unlikely based on his history. Hernia/abdominal wall defect has been ruled out. Most likely this is more of a muscle abdominal strain. Will place on steroids. Return to precautions given. Differential Diagnosis Likely abdominal pain, constipation, diverticulitis and gastroenteritis Medical Records I reviewed the patient's medical records. Lab Data I reviewed the patient's lab results. 08/22/23 10:43 08/22/23 10:43 Labs/Radiology: Radiology Impressions Abdomen/Pelvis CT 08/22/23 10:17 IMPRESSION: Subtle findings suggesting a mild descending and sigmoid colitis. Laboratory Results WBC 14.02 10^3/uL (3.29-11.43) H 08/22/23 10:43 RBC 5.59 10^6/uL (3.85-5.65) 08/22/23 10:43 Hgb 17.30 g/dL (11.27-16.99) H 08/22/23 10:43 Hct 52.5 % (37-53) 08/22/23 10:43 MCV 93.9 fl (82-101) 08/22/23 10:43 MCH 30.9 pg (27-33) 08/22/23 10:43 MCHC 33.0 g/dL (30-55) 08/22/23 10:43 RDW 15.2 % (12.1-15.1) H 08/22/23 10:43 Plt Count 959 10^3/cmm (157-399) H 08/22/23 10:43 MPV 8.8 fL (7.4-10.4) 08/22/23 10:43 Neut % (Auto) 71.6 % 08/22/23 10:43 Lymph % (Auto) 18.3 % 08/22/23 10:43 [place] % (Auto) 6.8 % 08/22/23 10:43 Eos % (Auto) 1.6 % 08/22/23 10:43 Baso % (Auto) 0.9 % 08/22/23 10:43 Neut # (Auto) 10.03 10^3/uL (1.8-7.7) H 08/22/23 10:43 Lymph # (Auto) 2.6 10^3/uL (0.8-4.8) 08/22/23 10:43 [place] # (Auto) 1.0 10^3/uL (0.2-0.9) H 08/22/23 10:43 Eos # (Auto) 0.2 10^3/uL (0.0-0.8) 08/22/23 10:43 Baso # (Auto) 0.1 10^3/uL (0.0-0.1) 08/22/23 10:43 Nucleated RBC % (auto) 0 % 08/22/23 10:43 Nucleated RBCs # 0.0 /100WBC 08/22/23 10:43 Sodium Cancelled 08/22/23 10:43 Potassium Cancelled 08/22/23 10:43 Chloride Cancelled 08/22/23 10:43 Carbon Dioxide Cancelled 08/22/23 10:43 Anion Gap Cancelled 08/22/23 10:43 BUN Cancelled 08/22/23 10:43 Creatinine Cancelled 08/22/23 10:43 GFR Calculation Cancelled 08/22/23 10:43 Glucose Cancelled 08/22/23 10:43 Calculated Osmolality Cancelled 08/22/23 10:43 Calcium Cancelled 08/22/23 10:43 Total Bilirubin Cancelled 08/22/23 10:43 AST Cancelled 08/22/23 10:43 ALT Cancelled 08/22/23 10:43 Alkaline Phosphatase Cancelled 08/22/23 10:43 Total Protein Cancelled 08/22/23 10:43 Albumin Cancelled 08/22/23 10:43 Globulin Cancelled 08/22/23 10:43 Lipase Cancelled 08/22/23 10:43 Urine Color Yellow (Yellow) 08/22/23 10:45 Urine Appearance Clear (CLEAR) 08/22/23 10:45 Urine pH 5 (5-7) 08/22/23 10:45 Ur Specific [place] 1.020 (1.005-1.030) 08/22/23 10:45 Urine Protein Neg (Negative) 08/22/23 10:45 Urine Glucose (UA) Norm (Normal) 08/22/23 10:45 Urine Ketones Negative (Negative) 08/22/23 10:45 Urine Blood Neg (Negative) 08/22/23 10:45 Urine Nitrate Negative (Negative) 08/22/23 10:45 Urine Bilirubin Neg (Negative) 08/22/23 10:45 Urine Urobilinogen Neg mg/dL (Negative) 08/22/23 10:45 Ur Leukocyte Esterase Negative (Negative) 08/22/23 10:45 All radiology interpretation(s) finalized by discharge Discharge Plan Discharge Patient Disposition: Home Clinical Impression: Left lower quadrant abdominal pain Condition: Stable Prescriptions: New prednisone 10 mg tablet 10 mg PO DAILY 6 Days Qty: 20 0RF Rx Instructions: Take 5 tabs on day 1-2, 4 tabs on day 3, 3 tabs on day 4, 2 tabs on day 5, and 1 tab on day 6 Discharge Orders: Discharge ED (Routine); Ordered 08/22/23 Ordered By: Slime Pacheco Referrals: Sue Mathews FNP [Primary Care Provider] - Patient Instructions: Abdominal Pain (ED) Activity Restrictions/Additional Instructions: As we discussed your CT scan today suggested a possible mild colitis. I think this is less likely given your history however I would like you to do a bland liquid diet over the next 48 hours and slowly advance as tolerated. We will place you on steroids. Also recommend trying an anti-inflammatory pain medications, ice, heat as there is some concern of musculoskeletal etiology based on history. Recommend follow-up with primary care in a week or so if symptoms do not seem to be improving. Coding Level of Care Code ED Basket Weaver for Matthew Ferguson
--- NOTE | 2023-08-22 10:17 | CTR_ITS ---
PROCEDURE INFORMATION: Exam: CT Abdomen And Pelvis With Contrast Exam date and time: 08/22/2023 10:50 AM Age: 48 years old Clinical indication: Abdominal pain; Localized; Left lower quadrant (llq); Additional info: L lower abdominal pain; Poss hernia? TECHNIQUE: Imaging protocol: Computed tomography of the abdomen and pelvis with contrast. Radiation optimization: All CT scans at this facility use at least one of these dose optimization techniques: automated exposure control; mA and/or kV adjustment per patient size (includes targeted exams where dose is matched to clinical indication); or iterative reconstruction. Contrast material: OMNI 350; Contrast volume: 100 ml; Contrast route: INTRAVENOUS (IV); COMPARISON: US scrotum [id number] 03/03/2018 11:52 AM RADIATION DOSE METRICS: Total DLP (mGy-cm): 624.93 FINDINGS: Liver: Normal. No mass. Gallbladder and bile ducts: Normal. No calcified stones. No ductal dilation. Pancreas: Normal. No ductal dilation. Spleen: Normal. No splenomegaly. Adrenal glands: Normal. No mass. Kidneys and ureters: Normal. No hydronephrosis. Stomach and bowel: The descending and sigmoid colon are empty. There is probably mild thickening of the wall of the descending and adjacent sigmoid colon probably representing a mild colitis. There is no pericolonic stranding however. Appendix: No evidence of appendicitis. Intraperitoneal space: Unremarkable. No free air. No significant fluid collection. Vasculature: Unremarkable. No abdominal aortic aneurysm. Lymph nodes: Unremarkable. No enlarged lymph nodes. Urinary bladder: Unremarkable as visualized. Reproductive: Likely left hydrocele. Bones/joints: Unremarkable. No acute fracture. Soft tissues: Unremarkable. CT/CT abdomen pelvis w con* [id number] IMPRESSION: Subtle findings suggesting a mild descending and sigmoid colitis.
[2023-08-22 10:27] VITALS: BP 143/87; PULSE 82; O2SAT 96
[2023-08-22 10:48] LABS: Add Urine Microscopic? NO; Charge for UA Resulting for Rev
[2023-08-22 10:49] LABS: Basophils # 0.1 10^3/uL (0.0-0.1); Basophils % 0.9 %; Eosinophils # 0.2 10^3/uL (0.0-0.8); Eosinophils % 1.6 %; Hematocrit 52.5 % (37-53); Lymphocytes # 2.6 10^3/uL (0.8-4.8); Lymphocytes % 18.3 %; Mean Corpuscular Hemoglobin 30.9 pg (27-33); Mean Corpuscular Volume 93.9 fl (82-101); Mean Platelet Volume 8.8 fL (7.4-10.4); Monocytes % 6.8 %; Neutrophils # 10.03 10^3/uL (1.8-7.7); Neutrophils % 71.6 %; Nucleated Red Blood Cells % 0 %; Platelet Count 959 10^3/cmm (157-399); Red Blood Count 5.59 10^6/uL (3.85-5.65); Red Cell Distribution Width 15.2 % (12.1-15.1); White Blood Count 14.02 10^3/uL (3.29-11.43)
[2023-08-22 10:52] LABS: Bilirubin Urine Neg (Negative); Blood Urine Neg (Negative); Glucose Urine UA Norm (Normal); Ketones Urine Negative (Negative); Leukocyte Esterase Urine Negative (Negative); Nitrate Urine Negative (Negative); Protein Urine Neg (Negative); Urine Appearance Clear (CLEAR); Urine Color Yellow (Yellow); Urobilinogen Urine Neg (Negative); pH Urine 5 (5-7)
[2023-08-22] MEDS: iohexol 350 mg/mL 500 mL Btl (per mL) IV (10:58)
[2023-08-22 11:40] VITALS: BP 143/87; PULSE 82; RESP 16; TEMP 36.5; O2SAT 96
== END 2023-08-22 11:41 | disposition home or self-care (01) ==
PROVIDERS: Emergency Provider Physician Assistant; PCP Nurse Practitioner Family
DX: R10.32 Left lower quadrant pain (principal); I25.10 Atherosclerotic heart disease of native coronary artery without angina pectoris; F17.210 Nicotine dependence, cigarettes, uncomplicated
CPT/HCPCS: 74177; 81003; 85025; 99285; Q9967

== ENCOUNTER 2023-09-19 15:41 | Emergency (ER) | payer OTHER, SELFPAY ==
[2023-09-19 15:42] VITALS: BP 166/94; PULSE 94; RESP 14; TEMP 36.6; O2SAT 98
--- NOTE | 2023-09-19 16:07 | XRR_ITS ---
PROCEDURE INFORMATION: Exam: XR Chest Exam date and time: 09/19/2023 4:18 PM Age: 48 years old Clinical indication: Pain; Angina pectoris; Additional info: Chest pain TECHNIQUE: Imaging protocol: Radiologic exam of the chest. Views: 1 view. COMPARISON: CR XR chest 1V portable [id number] 11/27/2021 5:56 PM FINDINGS: Lungs: Unremarkable. No consolidation. Pleural spaces: Unremarkable. No pleural effusion. No pneumothorax. Heart/Mediastinum: Unremarkable. No cardiomegaly. Bones/joints: Unremarkable. XR/XR chest 1V portable [id number] IMPRESSION: No acute findings.
--- NOTE | 2023-09-19 16:08 | ED_ITS ---
Documented by User: ADRIA Villafuerte 09/19/23 16:17 HPI - Abdominal Pain 2 General: Chief Complaint: Abdominal Pain Stated Complaint: abd pain radiating into chest Time Seen by Provider: 09/19/23 15:48 Source: patient Mode of arrival: ambulatory Limitations: no limitations History of Present Illness: Patient is a 48-year-old male presents to ED today with a complaint of upper abdominal pain over the past week and a half or so. States pain is constant with intermittent waves of exacerbation. He describes the pain as burning and squeezing and sometimes radiates up into his chest. He feels like symptoms got worse after eating salty potato chips. Patient states he was seen here approximately 4 weeks ago for some left sided belly pain. I personally saw patient on that visit. Blood work and CT scan at that time was essentially unremarkable. He states this pain is completely subsided. He states he has had quite a bit of heartburn lately. He states he works at a [employer] and has been taking animal sodium bicarb to treat his indigestion. Patient has not had any nausea or vomiting. He feels like bowel movements are for the most part normal. No fevers. Patient was here back in 2020 for an NSTEMI. He was subsequently taken to the [facility] during his inpatient hospitalization and reportedly received two cardiac stents. He states my symptoms then just felt like indigestion . He does not complain of chest pain currently. When asked where he primarily hurts at, he points to epigastric region. MD elicited complaint: abdominal pain Pertinent past history: myocardial infarction Onset (ago): week(s) Location: Epigastric and RUQ Severity: moderate Quality: burning and other (squeezing) Radiation: chest Migration to: no migration Exacerbating factors: eating (states salty potato chips made it worse) Relieving factors: nothing Associated Symptoms: Reports heartburn; Denies chills, GI cramping, dysuria, fever(s), hematochezia, melena, nausea, syncope and vomiting Review of Systems 2 Const: Denies: fever(s), chills, body aches, fatigue or malaise Card: Reports: chest pain; Denies: palpitations, irregular heart rhythm, edema, swelling of feet/ankles, lightheadedness, syncope, pre-syncope, dyspnea on exertion, orthopnea, leg pain with exertion or acrocyanosis Resp: Denies: dyspnea, productive cough, non-productive cough, wheezing, pain on inspiration, change in phlegm color, hemoptysis or chest congestion GI: Reports: abdominal pain and heartburn; Denies: nausea, vomiting, dysphagia, GI cramping, hematochezia or melena : Denies: flank pain, difficulty urinating, dysuria, urinary frequency, urinary urgency or urinary hesitancy Musc: Denies: neck pain, back pain, extremity pain or joint pain Skin/Breast: Denies: rash Neuro: Denies: headache(s), numbness in extremities, weakness in extremities or sensory changes PFSH ED 2 PFSH: Medical History Coronary artery disease Tobacco abuse Right bundle branch block MVP (mitral valve prolapse) Surgical History S/P coronary artery stent placement First diagonal S/P nasal surgery No pertinent past surgical history Family History Brother , age 37; [place] CAD (coronary artery disease) Mother CAD (coronary artery disease) Social History Smoking and tobacco/nicotine status: current every day tobacco/nicotine user cigarettes Packs smoked per day: 1 Years cigarettes smoked: 25 Second hand smoke exposure: Yes Alcohol intake: current Alcohol intake frequency: holidays/special occasions only Substance/Drug Use: current Substance/Drug use frequency: daily Caregiver/support person: Yes Lives independently: Yes Household members: spouse Marital status: service: No Current occupational status: employed Current gender identity: Male Physical Exam 2 Const: COMMON NORMALS: no acute distress, average body habitus, patient oriented x3, no limitations, healthy appearing, alert and well nourished G ENERAL APPEARANCE: cooperative ORIENTATION/CONSCIOUSNESS: Yes awake, Yes oriented to person, Yes oriented to place and Yes oriented to time HENMT: COMMON NORMALS: normocephalic and atraumatic HEAD & SCALP: n ormocephalic and atraumatic Neck/C-Spine: COMMON NORMALS: full ROM, no lymphadenopathy, supple and no meningeal signs Chest: COMMONS NORMALS: normal inspection of the chest and normal palpation of entire chest wall Resp: COMMON NORMALS: normal respiratory effort and clear to auscultation bilaterally AUSCULTATION: clear to auscultation bilaterally Cardio: COMMON NORMALS: regular rate and regular rhythm RATE: regular rate RHYTHM: regular rhythm GI: COMMON NORMALS: Normal to inspection, nondistended, normoactive bowel sounds present, Soft to palpation, No hepatosplenomegaly present and no masses INSPECTION: Yes normal to inspection AUSCULTATION: Yes normoactive bowel sounds PALPATION: Yes Soft to palpation, Yes Tenderness to palpation present (GI) (upper abdomen mainly epigastric), No Guarding due to palpation present (GI), No Rigid due to palpation and Yes No hepatosplenomegaly present : COMMON NORMALS: Yes no CVA tenderness BLADDER/KIDNEY EXAM: Yes no CVA tenderness Back/Pelvis: COMMON NORMALS: no CVA tenderness and thoracic and lumbar spine normal to inspection Extremity: COMMON NORMALS: normal to inspection, no clubbing, cyanosis or edema, no calf tenderness and no pedal edema Neuro: MEGHANN COMA SCALE: document GCS findings Meghann coma scale eye opening: Spontaneous Meghann coma scale verbal response: Orientated [place] coma scale motor response: Obey commands [place] coma scale total score: 15 COMMON NORMALS: patient oriented x3, moves all extremities, no focal motor deficits and no sensory deficits noted SENSORIUM/ORIENTATION: Yes alert, Yes oriented to person, Yes oriented to place and Yes oriented to time MENINGEAL SIGNS: Yes no meningeal signs Skin: COMMON NORMALS: no rashes or lesions noted GENERAL SKIN EXAM: no rashes or lesions noted Course 2 Vital Signs: Vital signs: Vital Signs Temperature 97.8 F 09/19/23 15:42 Pulse Rate 79 09/19/23 18:44 Respiratory Rate 14 09/19/23 15:42 Blood Pressure 148/74 09/19/23 18:44 Pulse Oximetry 98 09/19/23 18:44 Oxygen Delivery Me thod Room Air 09/19/23 15:42 MDM - Abdominal Pain Lab Data 09/19/23 16:45 09/19/23 16:45 Labs/Radiology: Radiology Impressions Chest X-Ray 09/19/23 16:07 IMPRESSION: No acute findings. Abdomen/Pelvis CT 09/19/23 17:20 IMPRESSION: 1. No evidence of acute abnormality in the abdomen or pelvis. 2. Mild wall thickening of the distal esophagus, possibly reflecting esophagitis. Consider follow-up outpatient GI evaluation and endoscopy to exclude Roman's esophagus. Laboratory Results WBC 23.34 10^3/uL (3.29-11.43) H 09/19/23 16:45 RBC 5.27 10^6/uL (3.85-5.65) 09/19/23 16:45 Hgb 16.10 g/dL (11.27-16.99) 09/19/23 16:45 Hct 49.3 % (37-53) 09/19/23 16:45 MCV 93.5 fl (82-101) 09/19/23 16:45 MCH 30.6 pg (27-33) 09/19/23 16:45 MCHC 32.7 g/dL (30-55) 09/19/23 16:45 RDW 14.6 % (12.1-15.1) 09/19/23 16:45 Plt Count 972 10^3/cmm (157-399) H 09/19/23 16:45 MPV 8.9 fL (7.4-10.4) 09/19/23 16:45 Neut % (Auto) 79.7 % 09/19/23 16:45 Lymph % (Auto) 14.1 % 09/19/23 16:45 [place] % (Auto) 4.7 % 09/19/23 16:45 Eos % (Auto) 0.2 % 09/19/23 16:45 Baso % (Auto) 0.6 % 09/19/23 16:45 Neut # (Auto) 18.62 10^3/uL (1.8-7.7) H 09/19/23 16:45 Lymph # (Auto) 3.3 10^3/uL (0.8-4.8) 09/19/23 16:45 [place] # (Auto) 1.1 10^3/uL (0.2-0.9) H 09/19/23 16:45 Eos # (Auto) 0.0 10^3/uL (0.0-0.8) 09/19/23 16:45 Baso # (Auto) 0.1 10^3/uL (0.0-0.1) 09/19/23 16:45 Nucleated RBC % (auto) 0 % 09/19/23 16:45 Nucleated RBCs # 0.0 /100WBC 09/19/23 16:45 Sodium 140 mmol/L (136-145) 09/19/23 16:45 Potassium 4.4 mmol/L (3.5-5.1) 09/19/23 16:45 Chloride 100 mmol/L (98-107) 09/19/23 16:45 Carbon Dioxide 29 mmol/L (22-29) 09/19/23 16:45 Anion Gap 15.4 (5-19) 09/19/23 16:45 BUN 16 mg/dL (6-20) 09/19/23 16:45 Creatinine 0.9 mg/dL (0.7-1.2) 09/19/23 16:45 GFR Calculation 90.8 mL/min (90-130) 09/19/23 16:45 Glucose 121 mg/dL (65-115) H 09/19/23 16:45 Calculated Osmolality 292 mOsm/kg (285-295) 09/19/23 16:45 Calcium 9.4 mg/dL (8.5-10.5) 09/19/23 16:45 Total Bilirubin 0.2 mg/dL (0.15-1.2) 09/19/23 16:45 AST 14 U/L (0-40) 09/19/23 16:45 ALT 18 U/L (0-41) 09/19/23 16:45 Alkaline Phosphatase 122 U/L (40-130) 09/19/23 16:45 Troponin T Baseline 7 ng/L (0-15) 09/19/23 16:45 Troponin T 120 Minute 6.00 ng/L (0-15) 09/19/23 18:31 Delta Troponin T -1.00 ABS# (0-10) L 09/19/23 18:31 Total Protein 6.8 g/dL (6.6-8.7) 09/19/23 16:45 Albumin 4.5 g/dL (3.5-5.2) 09/19/23 16:45 Globulin 2.3 g/dL (1.3-4.6) 09/19/23 16:45 Lipase 36 U/L (13-60) 09/19/23 16:45 Urine Color Yellow (Yellow) 09/19/23 16:45 Urine Appearance Clear (CLEAR) 09/19/23 16:45 Urine pH 5 (5-7) 09/19/23 16:45 Ur Specific [place] 1.025 (1.005-1.030) 09/19/23 16:45 Urine Protein Neg (Negative) 09/19/23 16:45 Urine Glucose (UA) Norm (Normal) 09/19/23 16:45 Urine Ketones Negative (Negative) 09/19/23 16:45 Urine Blood Neg (Negative) 09/19/23 16:45 Urine Nitrate Negative (Negative) 09/19/23 16:45 Urine Bilirubin Neg (Negative) 09/19/23 16:45 Urine Urobilinogen Neg mg/dL (Negative) 09/19/23 16:45 Ur Leukocyte Esterase Negative (Negative) 09/19/23 16:45 Discharge Plan Discharge Patient Disposition: Home Clinical Impression: GERD (gastroesophageal reflux disease) Qualifiers: Esophagitis presence: with esophagitis Esophagitis bleeding: without hemorrhage Qualified Code(s): K21.00 - Gastro-esophageal reflux disease with esophagitis, without bleeding Condition: Stable Prescriptions: New Protonix 40 mg tablet,delayed release (DR/EC) 40 mg PO DAILY 28 Days Qty: 28 0RF Discharge Orders: Discharge ED (Routine); Ordered 09/19/23 Ordered By: Wm Chand Referrals: Sue Mathews FNP [Primary Care Provider] - Discharge Diet: As Directed Discharge Activity: Increase activity as tolerated Patient Instructions: GERD (Gastroesophageal Reflux Disease) (ED) Activity Restrictions/Additional Instructions: Protonix as prescribed. Follow-up with primary care as instructed for further outpatient evaluation, including possible upper endoscopy. Please return if you develop any new or concerning symptoms. Avoid any potential trigger foods or drinks. Sign Out Sign Out Data: Patient Sign Out occurred on 09/19/23 at 17:09. Patient's care was discussed, and care was transferred from ADRIA Villafuerte to ADRIA Caba. Coding Level of Care Code ED [facility] for Chg Fwd Documented by User: ADRIA Caba 09/19/23 19:20 HPI - Abdominal Pain 2 General: Chief Complaint: Abdominal Pain Stated Complaint: abd pain radiating into chest Time Seen by Provider: 09/19/23 15:48 PFSH ED 2 PFSH: Medical History Coronary artery disease Tobacco abuse Right bundle branch block MVP (mitral valve prolapse) Surgical History S/P coronary artery stent placement First diagonal S/P nasal surgery No pertinent past surgical history Family History Brother , age 37; [place] CAD (coronary artery disease) Mother CAD (coronary artery disease) Social History Smoking and tobacco/nicotine status: current every day tobacco/nicotine user cigarettes Packs smoked per day: 1 Years cigarettes smoked: 25 Second hand smoke exposure: Yes Alcohol intake: current Alcohol intake frequency: holidays/special occasions only Substance/Drug Use: current Substance/Drug use frequency: daily Caregiver/support person: Yes Lives independently: Yes Household members: spouse Marital status: service: No Current occupational status: employed Current gender identity: Male Physical Exam 2 Neuro: MEGHANN COMA SCALE: document GCS findings [place] coma scale total score: 15 Course 2 Vital Signs: Vital signs: Vital Signs Temperature 97.8 F 09/19/23 15:42 Pulse Rate 79 09/19/23 18:44 Respiratory Rate 14 09/19/23 15:42 Blood Pressure 148/74 09/19/23 18:44 Pulse Oximetry 98 09/19/23 18:44 Oxygen Delivery Me thod Room Air 09/19/23 15:42 MDM - Abdominal Pain Medical Decision Making This patient was handed over to me at shift change by ADRIA Villafuerte. He had presented with some epigastric pain, noting that he previously had a similar pain that resulted in NSTEMI and subsequent cardiac catheterization with stents. He has been taking sodium bicarb for his symptoms. Vitals stable on arrival and he has remained comfortable throughout his ED stay. He did have some discomfort with palpation of the epigastrium, but otherwise examination ultimately unremarkable. Initial troponin drawn was normal, and EKG showed no signs of acute ST segment changes. He did have an elevated white count of 22, but otherwise his lab evaluation was normal. Due to the elevation, I did order an abdominal CT that showed some signs of distal esophageal thickening, possibly some esophagitis. I question the patient on his history of GERD and whether or not he has taken medications for this, which he denies. I will start him on Protonix and informed him to follow-up with primary care for further evaluation and probable referral to GI for upper endoscopy. His repeat troponin was also negative, as well as his EKG. His chest x-ray was normal. UA unremarkable. I have very low suspicion that patient's pain is cardiac in nature, and primarily due to GERD. I did however, have a lengthy conversation with the patient in regards to reasons to return, to which she agrees. All other questions and concerns addressed at this time. Patient will be discharged home. Lab Data I reviewed the patient's lab results. 09/19/23 16:45 09/19/23 16:45 Labs/Radiology: Radiology Impressions Chest X-Ray 09/19/23 16:07 IMPRESSION: No acute findings. Abdomen/Pelvis CT 09/19/23 17:20 IMPRESSION: 1. No evidence of acute abnormality in the abdomen or pelvis. 2. Mild wall thickening of the distal esophagus, possibly reflecting esophagitis. Consider follow-up outpatient GI evaluation and endoscopy to exclude Roman's esophagus. Laboratory Results WBC 23.34 10^3/uL (3.29-11.43) H 09/19/23 16:45 RBC 5.27 10^6/uL (3.85-5.65) 09/19/23 16:45 Hgb 16.10 g/dL (11.27-16.99) 09/19/23 16:45 Hct 49.3 % (37-53) 09/19/23 16:45 MCV 93.5 fl (82-101) 09/19/23 16:45 MCH 30.6 pg (27-33) 09/19/23 16:45 MCHC 32.7 g/dL (30-55) 09/19/23 16:45 RDW 14.6 % (12.1-15.1) 09/19/23 16:45 Plt Count 972 10^3/cmm (157-399) H 09/19/23 16:45 MPV 8.9 fL (7.4-10.4) 09/19/23 16:45 Neut % (Auto) 79.7 % 09/19/23 16:45 Lymph % (Auto) 14.1 % 09/19/23 16:45 [place] % (Auto) 4.7 % 09/19/23 16:45 Eos % (Auto) 0.2 % 09/19/23 16:45 Baso % (Auto) 0.6 % 09/19/23 16:45 Neut # (Auto) 18.62 10^3/uL (1.8-7.7) H 09/19/23 16:45 Lymph # (Auto) 3.3 10^3/uL (0.8-4.8) 09/19/23 16:45 [place] # (Auto) 1.1 10^3/uL (0.2-0.9) H 09/19/23 16:45 Eos # (Auto) 0.0 10^3/uL (0.0-0.8) 09/19/23 16:45 Baso # (Auto) 0.1 10^3/uL (0.0-0.1) 09/19/23 16:45 Nucleated RBC % (auto) 0 % 09/19/23 16:45 Nucleated RBCs # 0.0 /100WBC 09/19/23 16:45 Sodium 140 mmol/L (136-145) 09/19/23 16:45 Potassium 4.4 mmol/L (3.5-5.1) 09/19/23 16:45 Chloride 100 mmol/L (98-107) 09/19/23 16:45 Carbon Dioxide 29 mmol/L (22-29) 09/19/23 16:45 Anion Gap 15.4 (5-19) 09/19/23 16:45 BUN 16 mg/dL (6-20) 09/19/23 16:45 Creatinine 0.9 mg/dL (0.7-1.2) 09/19/23 16:45 GFR Calculation 90.8 mL/min (90-130) 09/19/23 16:45 Glucose 121 mg/dL (65-115) H 09/19/23 16:45 Calculated Osmolality 292 mOsm/kg (285-295) 09/19/23 16:45 Calcium 9.4 mg/dL (8.5-10.5) 09/19/23 16:45 Total Bilirubin 0.2 mg/dL (0.15-1.2) 09/19/23 16:45 AST 14 U/L (0-40) 09/19/23 16:45 ALT 18 U/L (0-41) 09/19/23 16:45 Alkaline Phosphatase 122 U/L (40-130) 09/19/23 16:45 Troponin T Baseline 7 ng/L (0-15) 09/19/23 16:45 Troponin T 120 Minute 6.00 ng/L (0-15) 09/19/23 18:31 Delta Troponin T -1.00 ABS# (0-10) L 09/19/23 18:31 Total Protein 6.8 g/dL (6.6-8.7) 09/19/23 16:45 Albumin 4.5 g/dL (3.5-5.2) 09/19/23 16:45 Globulin 2.3 g/dL (1.3-4.6) 09/19/23 16:45 Lipase 36 U/L (13-60) 09/19/23 16:45 Urine Color Yellow (Yellow) 09/19/23 16:45 Urine Appearance Clear (CLEAR) 09/19/23 16:45 Urine pH 5 (5-7) 09/19/23 16:45 Ur Specific [place] 1.025 (1.005-1.030) 09/19/23 16:45 Urine Protein Neg (Negative) 09/19/23 16:45 Urine Glucose (UA) Norm (Normal) 09/19/23 16:45 Urine Ketones Negative (Negative) 09/19/23 16:45 Urine Blood Neg (Negative) 09/19/23 16:45 Urine Nitrate Negative (Negative) 09/19/23 16:45 Urine Bilirubin Neg (Negative) 09/19/23 16:45 Urine Urobilinogen Neg mg/dL (Negative) 09/19/23 16:45 Ur Leukocyte Esterase Negative (Negative) 09/19/23 16:45 All radiology interpretation(s) finalized by discharge Discharge Plan Discharge Patient Disposition: Home Clinical Impression: GERD (gastroesophageal reflux disease) Qualifiers: Esophagitis presence: with esophagitis Esophagitis bleeding: without hemorrhage Qualified Code(s): K21.00 - Gastro-esophageal reflux disease with esophagitis, without bleeding Condition: Stable Prescriptions: New Protonix 40 mg tablet,delayed release (DR/EC) 40 mg PO DAILY 28 Days Qty: 28 0RF Discharge Orders: Discharge ED (Routine); Ordered 09/19/23 Ordered By: Wm Chand Referrals: Sue Mathews FNP [Primary Care Provider] - Discharge Diet: As Directed Discharge Activity: Increase activity as tolerated Patient Instructions: GERD (Gastroesophageal Reflux Disease) (ED) Activity Restrictions/Additional Instructions: Protonix as prescribed. Follow-up with primary care as instructed for further outpatient evaluation, including possible upper endoscopy. Please return if you develop any new or concerning symptoms. Avoid any potential trigger foods or drinks. Sign Out Sign Out Data: Patient Sign Out occurred on 09/19/23 at 17:09. Patient's care was discussed, and care was transferred from ADRIA Villafuerte to ADRIA Caba. Coding Level of Care Code ED [facility] for Matthew Ferguson
--- NOTE | 2023-09-19 16:08 | ECG_ITS ---
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 Measurements Intervals [place] Rate: 73 P: 20 RI: 170 QRS: -35 QRSD: 111 T: 34 QT: 386 QTc: 426 Interpretive Statements SINUS RHYTHM LEFT AXIS DEVIATION [QRS AXIS < -30] INCOMPLETE RIGHT BUNDLE BRANCH BLOCK [90+ ms QRS DURATION, TERMINAL R IN V1/V2, 40+ ms S IN I/aVL/V4/V5/V6] MINIMAL VOLTAGE CRITERIA FOR LVH, CONSIDER NORMAL VARIANT [MEETS CRITERIA IN ONE OF: R(aVL), S(V1), R(V5), R(V5/V6)+S(V1)] SEPTAL MYOCARDIAL INFARCTION , OF INDETERMINATE AGE [40+ ms Q WAVE IN V1/V2] MODERATE T-WAVE ABNORMALITY, CONSIDER ANTERIOR ISCHEMIA [-0.1+ mV T-WAVE IN V3/V4] Compared to ECG 11/22/2020 19:27:12 Left-axis deviation now presentT-wave abnormality now present Possible ischemia now present.Sinus bradycardia no longer present.Indeterminate axis no longer present.Myocardial infarct finding still present Electronically Signed On 09-20-2023 19:26:59 CDT by Arlene Peguero M.D. [id number]
[2023-09-19] MEDS: lidocaine 2% viscous 15 ML, aluminum-mag hydrox-simethicon 30 ML, sucralfate oral liq 1 GM PO (16:18)
[2023-09-19 16:47] LABS: Add Urine Microscopic? NO; Charge for UA Resulting for Rev
[2023-09-19 17:00] LABS: Bilirubin Urine Neg (Negative); Blood Urine Neg (Negative); Glucose Urine UA Norm (Normal); Ketones Urine Negative (Negative); Leukocyte Esterase Urine Negative (Negative); Nitrate Urine Negative (Negative); Protein Urine Neg (Negative); Specific Gravity, Urine 1.025 (1.005-1.030); Urine Appearance Clear (CLEAR); Urine Color Yellow (Yellow); Urobilinogen Urine Neg (Negative); pH Urine 5 (5-7)
[2023-09-19 17:02] LABS: Basophils # 0.1 10^3/uL (0.0-0.1); Basophils % 0.6 %; Eosinophils % 0.2 %; Hematocrit 49.3 % (37-53); Lymphocytes # 3.3 10^3/uL (0.8-4.8); Lymphocytes % 14.1 %; Mean Corpuscular HGB Conc 32.7 g/dL (30-55); Mean Corpuscular Hemoglobin 30.6 pg (27-33); Mean Corpuscular Volume 93.5 fl (82-101); Mean Platelet Volume 8.9 fL (7.4-10.4); Monocytes # 1.1 10^3/uL (0.2-0.9); Monocytes % 4.7 %; Neutrophils # 18.62 10^3/uL (1.8-7.7); Neutrophils % 79.7 %; Nucleated Red Blood Cells % 0 %; Platelet Count 972 10^3/cmm (157-399); Red Blood Count 5.27 10^6/uL (3.85-5.65); Red Cell Distribution Width 14.6 % (12.1-15.1); White Blood Count 23.34 10^3/uL (3.29-11.43)
--- NOTE | 2023-09-19 17:20 | CTR_ITS ---
PROCEDURE INFORMATION: Exam: CT Abdomen And Pelvis With Contrast Exam date and time: 09/19/2023 5:38 PM Age: 48 years old Clinical indication: Pain and abnormal findings; Abnormal lab test; Abdominal pain; Prior surgery; Surgery date: 6+ months; Surgery type: Coronary stents; Patient HX: C/O epigastric pain with elevated wbc. ; Additional info: Epigastric pain/elevated wbc TECHNIQUE: Imaging protocol: Computed tomography of the abdomen and pelvis with contrast. Radiation optimization: All CT scans at this facility use at least one of these dose optimization techniques: automated exposure control; mA and/or kV adjustment per patient size (includes targeted exams where dose is matched to clinical indication); or iterative reconstruction. Contrast material: OMNI 350; Contrast volume: 100 ml; Contrast route: INTRAVENOUS (IV); COMPARISON: CT abdomen pelvis w con* [id number] 08/22/2023 10:50 AM RADIATION DOSE METRICS: Total DLP (mGy-cm): 627.53 FINDINGS: Lungs: Subsegmental bibasilar atelectasis. The visualized lung bases are otherwise grossly clear. Diaphragm: No evidence of diaphragmatic defect. Liver: No focal hepatic lesion. Gallbladder and bile ducts: Unremarkable. No intra-hepatic or extra-hepatic biliary dilatation. Pancreas: Unremarkable. Spleen: Unremarkable. Adrenal glands: Unremarkable. Kidneys and ureters: No renal parenchymal abnormality. No hydronephrosis or ureteral stone. Stomach and bowel: No evidence of bowel obstruction or perienteric inflammatory changes. There is mild wall thickening of the distal esophagus. Appendix: Normal appendix. Intraperitoneal space: No evidence of free air or fluid collection. Vasculature: No aneurysmal dilatation or dissection of the abdominal aorta. The celiac trunk, SMA and YAEL are grossly patent. No evidence of IVC thrombus. The portal vein, SMV and splenic veins are grossly patent. Lymph nodes: No adenopathy. Urinary bladder: Grossly unremarkable. Reproductive: Grossly unremarkable. Bones/joints: No evidence of acute fracture or aggressive osseous lesion. Soft tissues: No evidence of fluid collection or hematoma in the superficial soft tissues. CT/CT abdomen pelvis w con* [id number] IMPRESSION: 1. No evidence of acute abnormality in the abdomen or pelvis. 2. Mild wall thickening of the distal esophagus, possibly reflecting esophagitis. Consider follow-up outpatient GI evaluation and endoscopy to exclude Roman's esophagus.
[2023-09-19 17:29] LABS: Alanine Aminotransferase 18 U/L (0-41); Albumin Level 4.5 g/dL (3.5-5.2); Alkaline Phosphatase 122 U/L (40-130); Anion Gap 15.4 (5-19); Aspartate Amino Transferase 14 U/L (0-40); Blood Urea Nitrogen 16 mg/dL (6-20); Calcium 9.4 mg/dL (8.5-10.5); Carbon Dioxide 29 mmol/L (22-29); Chloride 100 mmol/L (98-107); Creatinine Clr Calc Pharmacy 126.1851; Globulin 2.3 g/dL (1.3-4.6); Glomerular Filtration Rate 90.8 mL/min (90-130); Glucose 121 mg/dL (65-115); Lipase 36 U/L (13-60); Osmolality Calculated 292 mOsm/kg (285-295); Potassium 4.4 mmol/L (3.5-5.1); Sodium 140 mmol/L (136-145); Total Bilirubin 0.2 mg/dL (0.15-1.2); Total Protein 6.8 g/dL (6.6-8.7); Troponin(5th) Baseline 7 ng/L (0-15)
[2023-09-19] MEDS: iohexol 350 mg/mL 500 mL Btl (per mL) IV (17:39)
--- NOTE | 2023-09-19 18:08 | ECG_ITS ---
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 Measurements Intervals [place] Rate: 67 P: 6 MS: 161 QRS: -32 QRSD: 111 T: 33 QT: 397 QTc: 421 Interpretive Statements SINUS RHYTHM LEFT AXIS DEVIATION [QRS AXIS < -30] S1-S2-S3 PATTERN, CONSISTENT WITH PULMONARY DISEASE, RVH, OR NORMAL VARIANT INCOMPLETE RIGHT BUNDLE BRANCH BLOCK [90+ ms QRS DURATION, TERMINAL R IN V1/V2, 40+ ms S IN I/aVL/V4/V5/V6] SEPTAL MYOCARDIAL INFARCTION , PROBABLY OLD [40+ ms Q WAVE IN V1/V2] Compared to ECG 09/19/2023 16:38:15 Right ventricular hypertrophy now present T-wave abnormality no longer present Possible ischemia no longer present Myocardial infarct finding still present Electronically Signed On 09-20-2023 19:57:32 CDT by Arlene Peguero M.D. [id number]
[2023-09-19 18:44] VITALS: BP 148/74; PULSE 79; O2SAT 98
== END 2023-09-19 19:05 | disposition home or self-care (01) ==
PROVIDERS: Physician Assistant; Emergency Provider Physician Assistant; PCP Nurse Practitioner Family
DX: K21.00 Gastro-esophageal reflux disease with esophagitis, without bleeding (principal); I25.10 Atherosclerotic heart disease of native coronary artery without angina pectoris; F17.210 Nicotine dependence, cigarettes, uncomplicated
CPT/HCPCS: 36415; 71045; 74177; 80053; 81003; 83690; 84484; 85025; 93005; 99285; Q9967

== ENCOUNTER → 2023-09-25 10:54 | Outpatient (BNVA) | payer OTHER, SELFPAY | PROVIDERS: PCP Nurse Practitioner Family; Visit Provider Nurse Practitioner Family | DX: R10.13 Epigastric pain (principal); R79.89 Other specified abnormal findings of blood chemistry; R73.9 Hyperglycemia, unspecified | CPT/HCPCS: 80053; 80503; 83036; 85025 ==

== ENCOUNTER 2023-11-05 08:18 | Oncology outpatient (recurring) (ONCR) | payer OTHER, SELFPAY ==
[2023-11-05 09:59] LABS: Basophils # 0.1 10^3/uL (0.0-0.1); Basophils % 0.9 %; Eosinophils # 0.3 10^3/uL (0.0-0.8); Hematocrit 52.5 % (37-53); Lymphocytes # 2.6 10^3/uL (0.8-4.8); Lymphocytes % 17.2 %; Mean Corpuscular Hemoglobin 30.8 pg (27-33); Mean Corpuscular Volume 93.6 fl (82-101); Mean Platelet Volume 8.7 fL (7.4-10.4); Monocytes % 6.9 %; Neutrophils # 10.68 10^3/uL (1.8-7.7); Neutrophils % 72.2 %; Nucleated Red Blood Cells % 0 %; Platelet Count 1043 10^3/cmm (157-399); Red Blood Count 5.61 10^6/uL (3.85-5.65); Red Cell Distribution Width 14.6 % (12.1-15.1)
[2023-11-05 10:11] LABS: INR 0.96 (0.8-1.2)
[2023-11-05 10:12] LABS: Erythrocyte Sedimentation Rate 7 mm/hr (0-10)
[2023-11-05 10:19] LABS: Alanine Aminotransferase 24 U/L (0-41); Albumin Level 4.8 g/dL (3.5-5.2); Alkaline Phosphatase 129 U/L (40-130); Anion Gap 15.3 (5-19); Aspartate Amino Transferase 18 U/L (0-40); Blood Urea Nitrogen 15 mg/dL (6-20); Calcium 9.6 mg/dL (8.5-10.5); Carbon Dioxide 26 mmol/L (22-29); Chloride 103 mmol/L (98-107); Ferritin 175 ng/mL (30-400); Glomerular Filtration Rate 121.4 mL/min (90-130); Glucose 92 mg/dL (65-115); Iron 86 ug/dL (59-158); Lactate Dehydrogenase 158 U/L (135-225); Osmolality Calculated 290 mOsm/kg (285-295); Potassium 4.3 mmol/L (3.5-5.1); Sodium 140 mmol/L (136-145); Total Bilirubin 0.2 mg/dL (0.15-1.2); Total Iron Binding Capacity 343 mcg/dl; Total Protein 7.8 g/dL (6.6-8.7); Unsaturated Iron Binding 257 ug/dL (112-347)
[2023-11-05 10:37] LABS: LAB Peripheral Smear Sent for Review
[2023-11-05 10:59] LABS: HIV 1 & 2 Antibody Non-Reactive (Non-Reactiv); HIV 1 & 2 Antigen Non-Reactive (Non-Reactiv)
[2023-11-05 16:11] LABS: Hepatitis A Antibody IgM Non-Reactive (Nonreactive); Hepatitis B Core AB, Total Non-Reactive (Nonreactive); Hepatitis B Surface AB 11.3 (11.5-1000); Hepatitis B Surface Antigen Non-Reactive (Nonreactive)
[2023-11-05 16:41] LABS: Hepatitis C Virus Antibody Non-Reactive (Nonreactive)
[2023-11-07 12:47] LABS: Leukemia Profile (BBPL) See Report
[2023-11-09 11:49] LABS: Von Willebrand Factor AG 67 % (50-217)
[2023-11-10 10:29] LABS: P190 BCR ALB1 NOT DETECTED; P190 BCR ALB1 Yes Test Yes; P210 BCR ALB1 NOT DETECTED; P210 BCR ALB1 Yes Test Yes; Prior Results BLOOD; Source blood
[2023-11-11 17:00] LABS: Soluble Transferrin Receptor 1.47 mg/L (0.76-1.76)
[2023-11-13 14:59] LABS: Von Willebrand Ristocetin(Rcf) 21 % normal (42-200)
== END 2023-11-23 23:59 | disposition home or self-care (01) ==
PROVIDERS: PCP Nurse Practitioner Family; Visit Provider Internal Medicine
DX: D75.839 Thrombocytosis, unspecified (principal)
CPT/HCPCS: 36415; 80053; 80503; 81206; 81207; 81270; 81279; 81339; 81479; 82728; 83540; 83550; 83615; 84238; 85025; 85245; 85246; 85610; 85651; 85730; 86140; 86705; 86706; 86709; 86803; 87340; 87806; 88184; 88185

== ENCOUNTER 2023-12-24 12:00 | Oncology outpatient (recurring) (ONCR) | payer OTHER, SELFPAY ==
[2023-12-11 13:07] VITALS: BP 128/84; PULSE 80; RESP 16; TEMP 36.5; O2SAT 98
[2023-12-11 13:23] LABS: Partial Thromboplastin Time 31.4 SECONDS (23.9-36.7)
[2023-12-16 13:20] LABS: Factor VIII Activity Clotting 33 % normal (50-180)
[2023-12-17 19:29] LABS: Von Willebrand Ristocetin(Rcf) 22 % normal (42-200)
[2023-12-24 13:09] LABS: Basophils # 0.1 10^3/uL (0.0-0.1); Basophils % 0.8 %; Eosinophils # 0.2 10^3/uL (0.0-0.8); Eosinophils % 0.9 %; Hematocrit 50.4 % (37-53); Lymphocytes # 2.5 10^3/uL (0.8-4.8); Lymphocytes % 14.5 %; Mean Corpuscular HGB Conc 33.5 g/dL (30-55); Mean Corpuscular Hemoglobin 30.8 pg (27-33); Mean Platelet Volume 8.8 fL (7.4-10.4); Neutrophils # 13.35 10^3/uL (1.8-7.7); Nucleated Red Blood Cells % 0 %; Platelet Count 924 10^3/cmm (157-399); Red Blood Count 5.48 10^6/uL (3.85-5.65); Red Cell Distribution Width 15.6 % (12.1-15.1); White Blood Count 17.35 10^3/uL (3.29-11.43)
[2023-12-24 13:26] LABS: Alanine Aminotransferase 47 U/L (0-41); Albumin Level 4.9 g/dL (3.5-5.2); Alkaline Phosphatase 141 U/L (40-130); Aspartate Amino Transferase 47 U/L (0-40); Blood Urea Nitrogen 25 mg/dL (6-20); Carbon Dioxide 23 mmol/L (22-29); Chloride 102 mmol/L (98-107); Creatinine Clr Calc Pharmacy 123.5537; Globulin 3.4 g/dL (1.3-4.6); Glomerular Filtration Rate 90.8 mL/min (90-130); Glucose 122 mg/dL (65-115); Osmolality Calculated 298 mOsm/kg (285-295); Sodium 141 mmol/L (136-145); Total Bilirubin 0.5 mg/dL (0.15-1.2); Total Protein 8.3 g/dL (6.6-8.7)
[2023-12-24 13:28] LABS: Anion Gap 20.3 (5-19); Lactate Dehydrogenase > 200 U/L (135-225); Potassium 4.3 mmol/L (3.5-5.1)
[2023-12-24 14:20] VITALS: BP 126/74; PULSE 88; RESP 16; TEMP 36.5
[2023-12-31 08:38] LABS: Factor Viii, Activity 35 % normal (50-180); Partial Thromboplastin Time, A 33 sec (23-32)
[2024-01-02 11:55] LABS: Von Willebrand Factor (Rcf) 21 % normal (42-200); Von Willebrand Factor Ag 105 % (50-217)
== END 2023-12-24 23:59 | disposition home or self-care (01) ==
PROVIDERS: Internal Medicine; Nurse Practitioner Family; PCP Nurse Practitioner Family; Visit Provider Internal Medicine Medical Oncology
DX: D75.839 Thrombocytosis, unspecified (principal)
CPT/HCPCS: 36415; 80053; 83615; 85025; 85240; 85245; 85246; 85730; 99195

== ENCOUNTER 2024-01-21 12:45 | Oncology outpatient (recurring) (ONCR) | payer OTHER, SELFPAY ==
[2024-01-07 14:14] LABS: Basophils # 0.1 10^3/uL (0.0-0.1); Basophils % 0.7 %; Eosinophils # 0.2 10^3/uL (0.0-0.8); Eosinophils % 1.3 %; Hematocrit 43.1 % (37-53); Lymphocytes # 2.1 10^3/uL (0.8-4.8); Lymphocytes % 17.8 %; Mean Corpuscular HGB Conc 32.5 g/dL (30-55); Mean Corpuscular Hemoglobin 31.5 pg (27-33); Mean Corpuscular Volume 96.9 fl (82-101); Mean Platelet Volume 8.5 fL (7.4-10.4); Monocytes # 0.7 10^3/uL (0.2-0.9); Monocytes % 5.9 %; Neutrophils # 8.58 10^3/uL (1.8-7.7); Nucleated Red Blood Cells % 0 %; Platelet Count 704 10^3/cmm (157-399); Red Blood Count 4.45 10^6/uL (3.85-5.65)
[2024-01-07 14:30] LABS: Alanine Aminotransferase 21 U/L (0-41); Albumin Level 4.4 g/dL (3.5-5.2); Alkaline Phosphatase 109 U/L (40-130); Anion Gap 14.3 (5-19); Aspartate Amino Transferase 17 U/L (0-40); Blood Urea Nitrogen 17 mg/dL (6-20); Calcium 9.2 mg/dL (8.5-10.5); Carbon Dioxide 26 mmol/L (22-29); Chloride 104 mmol/L (98-107); Globulin 2.7 g/dL (1.3-4.6); Glomerular Filtration Rate 121.4 mL/min (90-130); Glucose 141 mg/dL (65-115); Osmolality Calculated 294 mOsm/kg (285-295); Potassium 4.3 mmol/L (3.5-5.1); Sodium 140 mmol/L (136-145); Total Bilirubin 0.2 mg/dL (0.15-1.2); Total Protein 7.1 g/dL (6.6-8.7)
[2024-01-21 12:40] LABS: Basophils # 0.1 10^3/uL (0.0-0.1); Basophils % 0.8 %; Eosinophils # 0.1 10^3/uL (0.0-0.8); Hematocrit 47.5 % (37-53); Lymphocytes # 2.1 10^3/uL (0.8-4.8); Lymphocytes % 19.3 %; Mean Corpuscular HGB Conc 33.1 g/dL (30-55); Mean Corpuscular Hemoglobin 32.1 pg (27-33); Mean Corpuscular Volume 97.1 fl (82-101); Mean Platelet Volume 8.7 fL (7.4-10.4); Monocytes % 9.4 %; Neutrophils # 7.36 10^3/uL (1.8-7.7); Neutrophils % 69.1 %; Nucleated Red Blood Cells % 0 %; Platelet Count 535 10^3/cmm (157-399); Red Blood Count 4.89 10^6/uL (3.85-5.65); Red Cell Distribution Width 18.5 % (12.1-15.1); White Blood Count 10.65 10^3/uL (3.29-11.43)
[2024-01-21 12:57] LABS: Alanine Aminotransferase 20 U/L (0-41); Albumin Level 4.7 g/dL (3.5-5.2); Alkaline Phosphatase 139 U/L (40-130); Anion Gap 15.9 (5-19); Aspartate Amino Transferase 19 U/L (0-40); Blood Urea Nitrogen 13 mg/dL (6-20); Calcium 9.3 mg/dL (8.5-10.5); Carbon Dioxide 25 mmol/L (22-29); Chloride 101 mmol/L (98-107); Creatinine Clr Calc Pharmacy 125.1326; Glomerular Filtration Rate 90.8 mL/min (90-130); Glucose 114 mg/dL (65-115); Osmolality Calculated 287 mOsm/kg (285-295); Potassium 3.9 mmol/L (3.5-5.1); Sodium 138 mmol/L (136-145); Total Bilirubin 0.6 mg/dL (0.15-1.2); Total Protein 7.7 g/dL (6.6-8.7)
[2024-01-21 14:42] VITALS: BP 118/74; PULSE 84; RESP 16; TEMP 36.8; O2SAT 98
== END 2024-01-24 23:59 | disposition home or self-care (01) ==
PROVIDERS: Nurse Practitioner Family; PCP Nurse Practitioner Family; Visit Provider Internal Medicine Medical Oncology
DX: D75.839 Thrombocytosis, unspecified (principal); Z53.9 Procedure and treatment not carried out, unspecified reason; D45 Polycythemia vera
CPT/HCPCS: 36415; 80053; 85025; 99195

== ENCOUNTER → 2024-02-24 10:22 | Outpatient (BNVA) | payer OTHER, SELFPAY | PROVIDERS: PCP Nurse Practitioner Family; Visit Provider Internal Medicine Medical Oncology | DX: D45 Polycythemia vera (principal) | CPT/HCPCS: 85025 ==

== ENCOUNTER 2024-03-22 09:38 | Emergency (ER) | payer OTHER, SELFPAY ==
--- NOTE | 2024-03-22 09:41 | XRR_ITS ---
PROCEDURE INFORMATION: Exam: XR Left Shoulder Exam date and time: 03/22/2024 9:50 AM Age: 48 years old Clinical indication: Injury or trauma; Other: Not specified; Blunt trauma (contusions or hematomas); Shoulder; Left TECHNIQUE: Imaging protocol: Radiologic exam of the left shoulder. Views: 2 or more views. COMPARISON: CR XR chest 1V portable [id number] 09/19/2023 4:18 PM FINDINGS: Bones/joints: The glenohumeral and acromioclavicular joints are normally aligned. No acute fracture is seen. Lungs: Visualized portions of the chest are normal. Soft tissues: Unremarkable. XR/XR shoulder LT min 2V* [id number] IMPRESSION: No evidence of acute fracture or dislocation.
[2024-03-22 10:11] VITALS: BP 143/93; PULSE 83; RESP 16; TEMP 36.6; O2SAT 98; BMI 24.3
--- NOTE | 2024-03-22 11:46 | ECG_ITS ---
[facility] Test Date: 2024-03-22 Pat Name: Mg Pritchett Department: Room: Gender: Male Prestidigitator: : 1975 Requested By: Zari Marc Order Number: [id number] Thierry MD: Arlene Peguero M.D. Measurements Intervals [place] Rate: 73 P: 19 KS: 158 QRS: -35 QRSD: 103 T: 53 QT: 390 QTc: 430 Interpretive Statements SINUS RHYTHM LEFT AXIS DEVIATION [QRS AXIS < -30] Compared to ECG 09/19/2023 18:41:15 Right ventricular hypertrophy no longer present Incomplete right bundle-branch block no longer present Myocardial infarct finding no longer present Electronically Signed On 03-22-2024 23:54:48 CDT by Arlene Peguero M.D. [id number]
--- NOTE | 2024-03-22 11:56 | ED_ITS ---
HPI - Extremity Problem General: Chief complaint: Extremity Injury, Upper Stated complaint: L Shoulder pain/injury Time Seen by Provider: 03/22/24 11:45 Source: patient Mode of arrival: ambulatory Limitations: no limitations History of Present Illness: 48-year-old male who states he is using air wand at work a few days ago and started having left shoulder pain he states been having shoulder pain since then he states its improved with rest but his pain when he lifts his arm or rotates his arm. States also hurts to palpation he denies any specific injury denies any chest pain denies any shortness of breath Associated symptoms: Deny chest pain, fever(s) or rash Related Data Previous Rx's Medication Instructions Recorded hydroxyurea 500 mg capsule (Hydrea) 500 mg PO BID #60 caps 03/01/24 methocarbamol 750 mg tablet 750 mg PO Q6H PRN spasms #20 tabs 03/22/24 naproxen 500 mg tablet (Naprosyn) 500 mg PO BID PRN pain #20 tabs 03/22/24 Allergies Allergy/AdvReac Type Severity Reaction Status Date / Time No Known Allergies Allergy Verified 03/22/24 10:16 Review of Systems Const: Denies: fever(s), chills, body aches or change in appetite ENMT: Denies: throat pain or dental pain Card: Denies: chest pain Resp: Denies: dyspnea GI: Denies: abdominal pain, nausea, vomiting or diarrhea Musc: Reports: extremity pain; Denies: neck pain or back pain Skin/Breast: Denies: rash Neuro: Denies: headache(s) PFSH ED PFSH: Medical History Polycythemia vera Coronary artery disease Tobacco abuse Right bundle branch block MVP (mitral valve prolapse) Surgical History S/P coronary artery stent placement First diagonal S/P nasal surgery Family History Brother , age 37; [place] CAD (coronary artery disease) Mother CAD (coronary artery disease) Social History Smoking and tobacco/nicotine status: tobacco/nicotine user, details unknown (patient use cigarettes and smokless tobacco) cigarettes Packs smoked per day: 0.5 Years cigarettes smoked: 33 and smokeless tobacco Smokeless tobacco user: chewing tobacco Smokeless tobacco details: total use 10 years Second hand smoke exposure: Yes Alcohol intake: current Alcohol intake frequency: holidays/special occasions only Substance/Drug Use: current Substance/Drug use frequency: daily Caregiver/support person: Yes Lives independently: Yes Household members: spouse Marital status: service: No Current occupational status: employed Current gender identity: Male Physical Exam Const: COMMON NORMALS: no acute distress, patient oriented x3 and healthy appearing HENMT: COMMON NORMALS: normocephalic and atraumatic HEAD & SCALP: normocephalic and atraumatic Neck/C-Spine: COMMON NORMALS: full ROM and supple Chest: COMMONS NORMALS: normal inspection of the chest Resp: COMMON NORMALS: normal respiratory effort Cardio: COMMON NORMALS: regular rate, regular rhythm and No murmurs present (Cardio) RATE: regular rate RHYTHM: regular rhythm Extremity: NARRATIVE EXTREMITY EXAM: Tenderness over left shoulder has pain with range of motion no obvious deformity Neuro: COMMON NORMALS: patient oriented x3, moves all extremities and no focal motor deficits Psych: COMMON NORMALS: mental status grossly normal, Normal thought process present and cooperative THOUGHT PROCESS: Normal thought process present Skin: COMMON NORMALS: no rashes or lesions noted and no wounds GENERAL SKIN EXAM: no rashes or lesions noted Course Vital Signs: Vital signs: Vital Signs Temperature 97.9 F 03/22/24 10:11 Pulse Rate 83 03/22/24 10:11 Respiratory Rate 16 03/22/24 10:11 Blood Pressure 143/93 03/22/24 10:11 Pulse Oximetry 98 03/22/24 10:11 Oxygen Delivery Me thod Room Air 03/22/24 10:11 MDM - Extremity (Nontraumatic) Medical Decision Making Patient presents here with a shoulder strain x-ray is negative we will place him on Naprosyn along with Robaxin he is to follow-up with orthopedics return if worsening he understands agrees to plan. Medical Records I reviewed the patient's medical records. Lab Data Radiology Impressions Shoulder X-Ray 03/22/24 09:41 IMPRESSION: No evidence of acute fracture or dislocation. All radiology interpretation(s) finalized by discharge EKG Data EKG 1: I personally reviewed and interpreted this EKG as follows: EKG interpretation date: 03/22/24 EKG interpretation time: 11:44 Interpretation: nsr hr [address] elevation qrs 103 qtc 415 Discharge Plan Discharge Patient Disposition: Home Clinical Impression: Left shoulder strain Condition: Stable Prescriptions: New methocarbamol 750 mg tablet 750 mg PO Q6H PRN (Reason: spasms) Qty: 20 0RF naproxen [Naprosyn] 500 mg tablet 500 mg PO BID PRN (Reason: pain) Qty: 20 0RF No Action hydroxyurea [Hydrea] 500 mg capsule 500 mg PO BID Qty: 60 0RF Discharge Orders: Discharge ED (Routine); Ordered 03/22/24 Ordered By: Zari Marc Referrals: Trey Abreu DO [Physician] - 4-7 days Sue Mathews FNP [Primary Care Provider] - Discharge Diet: Advance as tolerated Discharge Activity: Resume usual activity Patient Instructions: Shoulder Sprain (ED) Coding Level of Care Code ED Receiving Distribution Station Operator for Matthew Ferguson
[2024-03-22] MEDS: naproxen 500 mg Tablet PO (12:02)
[2024-03-22] MEDS: methocarbamol 750 mg Tablet 1500 MG PO (12:02)
[2024-03-22 12:03] VITALS: BP 136/89; PULSE 84; O2SAT 99
--- NOTE | 2024-03-23 08:53 | DCPLANNER ---
Message sent to Ortho for follow up- LT shoulder strain.
== END 2024-03-22 12:03 | disposition home or self-care (01) ==
PROVIDERS: Emergency Provider Emergency Medicine; PCP Nurse Practitioner Family
DX: S46.912A Strain of unspecified muscle, fascia and tendon at shoulder and upper arm level, left arm, initial encounter (principal); X58.XXXA Exposure to other specified factors, initial encounter; Y99.0 Civilian activity done for income or pay
CPT/HCPCS: 73030; 93005; 99284

== ENCOUNTER → 2024-04-13 13:25 | Outpatient (BNVA) | payer OTHER, SELFPAY | PROVIDERS: PCP Nurse Practitioner Family; Visit Provider Orthopaedic Surgery | DX: S49.92XA Unspecified injury of left shoulder and upper arm, initial encounter; M25.512 Pain in left shoulder | CPT/HCPCS: 73030 ==

== ENCOUNTER 2024-05-18 08:00 | Oncology outpatient (recurring) (ONCR) | payer OTHER, SELFPAY ==
[2024-04-28 12:33] LABS: Basophils # 0.1 10^3/uL (0.0-0.1); Basophils % 0.6 %; Eosinophils # 0.1 10^3/uL (0.0-0.8); Eosinophils % 0.8 %; Hematocrit 44.9 % (37-53); Lymphocytes # 2.5 10^3/uL (0.8-4.8); Lymphocytes % 23.7 %; Mean Corpuscular Hemoglobin 34.5 pg (27-33); Mean Corpuscular Volume 104.7 fl (82-101); Mean Platelet Volume 8.9 fL (7.4-10.4); Monocytes # 0.8 10^3/uL (0.2-0.9); Monocytes % 7.5 %; Neutrophils # 6.96 10^3/uL (1.8-7.7); Nucleated Red Blood Cells % 0 %; Platelet Count 619 10^3/cmm (157-399); Red Blood Count 4.29 10^6/uL (3.85-5.65); Red Cell Distribution Width 14.2 % (12.1-15.1); White Blood Count 10.38 10^3/uL (3.29-11.43)
[2024-04-28 12:51] LABS: Alanine Aminotransferase 19 U/L (0-41); Albumin Level 4.5 g/dL (3.5-5.2); Alkaline Phosphatase 111 U/L (40-130); Anion Gap 15.9 (5-19); Aspartate Amino Transferase 16 U/L (0-40); Blood Urea Nitrogen 16 mg/dL (6-20); Calcium 9.2 mg/dL (8.5-10.5); Carbon Dioxide 25 mmol/L (22-29); Chloride 102 mmol/L (98-107); Globulin 2.4 g/dL (1.3-4.6); Glomerular Filtration Rate 104.1 mL/min (90-130); Glucose 86 mg/dL (65-115); Lactate Dehydrogenase 141 U/L (135-225); Osmolality Calculated 288 mOsm/kg (285-295); Potassium 3.9 mmol/L (3.5-5.1); Sodium 139 mmol/L (136-145); Total Bilirubin 0.3 mg/dL (0.15-1.2); Total Protein 6.9 g/dL (6.6-8.7)
--- NOTE | 2024-05-18 08:00 | MR_ITS ---
WS: [id number] MRI LEFT SHOULDER NONCONTRAST TECHNIQUE: Sagittal T2, coronal T1, T2 and proton density imaging. Axial gradient PDE imaging. CLINICAL INFORMATION: Pain COMPARISON: None. FINDINGS: Moderate degenerative arthritis AC joint. Moderate downsloping acromion with narrowing of the subacro mial space. Impingement distal supraspinatus with subacromial spurring. Supraspinatus and infraspinatus appear intact. Mild chronic thinning of the distal supraspinatus whic h appears intact. Tendinopathy supraspinatus. Infraspinatus is normal in appearance. Normal teres min or. Subscapularis appears intact. Normal biceps tendon in the bicipital groove. Intra-articular biceps tendon appears intact. Glenoid labrum appears grossly normal. Normal bone marrow signal in the humeral head and glenoid. No evidence of acute fracture or dislocation. Biceps labral anchor appears intact. MR/MR shoulder LT wo con* [id number] IMPRESSION: Some images are degraded due to susceptibility artifact. 1. Moderate degenerative arthritis AC joint with moderate downsloping acromion . Slight impingement distal supraspinatus. 2. Tendinopathy supraspinatus which appears intact. 3. Rotator cuff is otherwise intact and normal in appearance. 4. Normal biceps tendon in the bicipital groove. 5. Intra-articular biceps tendon appears intact. 6. No other acute findings.
== END 2024-05-25 23:59 | disposition home or self-care (01) ==
LOC: RAD 05-19 00:01 → ONCMED 05-20 12:38
PROVIDERS: Internal Medicine Medical Oncology; PCP Nurse Practitioner Family; Visit Provider Orthopaedic Surgery
DX: R52 Pain, unspecified (principal); M19.012 Primary osteoarthritis, left shoulder
CPT/HCPCS: 36415; 73221; 80053; 83615; 85025

== ENCOUNTER 2024-05-24 12:02 | Emergency (ER) | payer OTHER, SELFPAY ==
[2024-05-24 12:30] VITALS: BP 139/88; PULSE 87; RESP 18; TEMP 36.6; O2SAT 97; BMI 24.3
--- NOTE | 2024-05-24 12:38 | ECG_ITS ---
[facility] Date: 2024-05-24 Pat Name: Mg Pritchett Department: Room: Gender: Male Digital Strategy Specialist: : 1975 Requested By: Zari Marc Order Number: [id number] Thierry MD: Stan Cottrell M.D. Measurements Intervals [place] Rate: 72 P: 22 VT: 164 QRS: -35 QRSD: 103 T: 44 QT: 381 QTc: 417 Interpretive Statements SINUS RHYTHM LEFT AXIS DEVIATION [QRS AXIS < -30] INCOMPLETE RIGHT BUNDLE BRANCH BLOCK [90+ ms QRS DURATION, TERMINAL R IN V1/V2, 40+ ms S IN I/aVL/V4/V5/V6] Compared to ECG 03/22/2024 11:44:07 Incomplete right bundle-branch block now present Electronically Signed On 05-24-2024 16:34:20 DOORPERSON by Stan Cottrell M.D. [id number]
--- NOTE | 2024-05-24 12:38 | CT_ITS ---
WS: [id number] CT ABDOMEN PELVIS TECHNIQUE: Contrast-enhanced CT of the abdomen and pelvis with coronal and sagittal reformatted image s. CLINICAL INFORMATION: abd pain COMPARISON: 09/19/2023 DLP: 616.[address] scans at [facility] use at least one of these dose optimization techniques: automated e xposure control; mA and/or kV adjustment per patient size (includes targeted exams where dose is matc hed to clinical indication); or iterative reconstruction. FINDINGS: Mild diffuse wall thickening involving the LEFT splenic flexure and descending colon with slight surr ounding induration extending into the sigmoid colon suspicious for infectious or inflammatory colitis . Recommend correlation with colitis type symptoms. Hepatomegaly. Diffuse fatty infiltration of the liver. Normal gallbladder. Normal spleen. Small esoph ageal hernia. Lung bases are well aerated. Normal pancreatic parenchymal enhancement. Normal gallblad ani. Adrenal glands are normal. Normal renal parenchymal enhancement. No hydronephrosis. Celiac and S MA are patent. Tiny fat-containing umbilical hernia. Normal appendix in the RIGHT lower quadrant. Normal caliber abdominal aorta. CT/CT abdomen pelvis w con* [id number] IMPRESSION: 1. Findings suspicious for infectious or inflammatory LEFT descending colitis extending into the sigmoid colon. 2. Hepatomegaly with diffuse fatty infiltration of the liver. 3. No other acute findings. Message LEFT for Zari Marc MD at 05/24/2024 2:05 PM.
--- NOTE | 2024-05-24 12:39 | ED_ITS ---
HPI - Abdominal Pain 2 General: Chief Complaint: Abdominal Pain Stated Complaint: abd pain Time Seen by Provider: 05/24/24 12:24 Source: patient Mode of arrival: ambulatory Limitations: no limitations History of Present Illness: 48-year-old male has a history of alcoho l abuse states he been having epigastric abdominal pain over the last 5 to 6 days. States pain sharp in nature has had some nausea he denies any fevers denies any worse improving factors rates his pain a 7 out of 10 currently. Associated Symptoms: Reports nausea; Denies chills, diarrhea and fever(s) Related Data Previous Rx's Medication Instructions Recorded hydroxyurea 500 mg capsule (Hydrea) 1,000 mg (2 x 500 mg) PO BID #120 04/28/24 caps amoxicillin 500 mg-potassium 1 tab PO BID #14 tabs 05/24/24 clavulanate 125 mg tablet (Augmentin) hydrocodone 5 mg-acetaminophen 325 1 tab PO Q6H PRN pain #14 tabs 05/24/24 mg tablet ondansetron 4 mg disintegrating 4 mg PO Q6H PRN nausea and 05/24/24 tablet vomiting #14 tabs pantoprazole 40 mg tablet,delayed 40 mg PO DAILY #60 tabs 05/24/24 release (Protonix) Allergies Allergy/AdvReac Type Severity Reaction Status Date / Time No Known Allergies Allergy Verified 05/24/24 12:35 Review of Systems 2 Const: Denies: fever(s), chills, body aches or change in appetite ENMT: Denies: throat pain or dental pain Card: Denies: chest pain Resp: Denies: dyspnea GI: Reports: abdominal pain and nausea; Denies: diarrhea Musc: Denies: neck pain or back pain Skin/Breast: Denies: rash Neuro: Denies: headache(s) PFSH ED 2 PFSH: Medical History Polycythemia vera Coronary artery disease Tobacco abuse Right bundle branch block MVP (mitral valve prolapse) Surgical History S/P coronary artery stent placement First diagonal S/P nasal surgery Family History Brother , age 37; [place] CAD (coronary artery disease) Mother CAD (coronary artery disease) Social History Smoking and tobacco/nicotine status: current every day tobacco/nicotine user (pack a day) cigarettes Packs smoked per day: 0.5 Years cigarettes smoked: 33 and smokeless tobacco Smokeless tobacco user: chewing tobacco Smokeless tobacco details: total use 10 years Second hand smoke exposure: Yes Alcohol intake: current Alcohol intake frequency: holidays/special occasions only Substance/Drug Use: current Substance/Drug use frequency: daily Caregiver/support person: Yes Lives independently: Yes Household members: spouse Marital status: service: No Current occupational status: employed Current gender identity: Male Physical Exam 2 Const: COMMON NORMALS: no acute distress, patient oriented x3 and healthy appearing HENMT: COMMON NORMALS: normocephalic and atraumatic HEAD & SCALP: n ormocephalic and atraumatic Eye: COMMON NORMALS: conjunctivae normal CONJUNCTIVA: Yes conjunctivae normal Neck/C-Spine: COMMON NORMALS: full ROM and supple Chest: COMMONS NORMALS: normal inspection of the chest Resp: COMMON NORMALS: normal respiratory effort, No retractions, No use of accessory muscles and clear to auscultation bilaterally AUSCULTATION: clear to auscultation bilaterally Cardio: COMMON NORMALS: regular rate, regular rhythm and No murmurs present (Cardio) RATE: regular rate RHYTHM: regular rhythm GI: COMMON NORMALS: Normal to inspection, nondistended, normoactive bowel sounds present, Soft to palpation and no masses PALPATION: Yes Soft to palpation OTHER: epigastric tenderness Extremity: COMMON NORMALS: normal to inspection and full ROM Neuro: COMMON NORMALS: patient oriented x3, moves all extremities and no focal motor deficits Psych: COMMON NORMALS: mental status grossly normal, Normal thought process present and cooperative THOUGHT PROCESS: Normal thought process present Skin: COMMON NORMALS: no rashes or lesions noted and no wounds GENERAL SKIN EXAM: no rashes or lesions noted Course 2 Vital Signs: Vital signs: Vital Signs Temperature 97.9 F 05/24/24 12:30 Pulse Rate 79 05/24/24 14:08 Respiratory Rate 16 05/24/24 14:08 Blood Pressure 143/97 05/24/24 14:08 Pulse Oximetry 98 05/24/24 14:08 Oxygen Delivery Me thod Room Air 05/24/24 14:08 MDM - Abdominal Pain Medical Decision Making Patient presents here with abdominal pain CT shows a colitis we will start him on Augmentin we will prescribe him pain meds while nausea meds Protonix we will get him follow-up with surgery he is return if worsening. Medical Records I reviewed the patient's medical records. Lab Data I reviewed the patient's lab results. 05/24/24 13:00 05/24/24 14:12 Labs/Radiology: Radiology Impressions Abdomen/Pelvis CT 05/24/24 12:38 IMPRESSION: 1. Findings suspicious for infectious or inflammatory LEFT descending colitis extending into the sigmoid colon. 2. Hepatomegaly with diffuse fatty infiltration of the liver. 3. No other acute findings. Message LEFT for Zari Marc MD at 05/24/2024 2:05 PM. Laboratory Results WBC 9.84 10^3/uL (3.29-11.43) 05/24/24 13:00 RBC 3.96 10^6/uL (3.85-5.65) 05/24/24 13:00 Hgb 14.10 g/dL (11.27-16.99) 05/24/24 13:00 Hct 42.8 % (37-53) 05/24/24 13:00 MCV 108.1 fl (82-101) H 05/24/24 13:00 MCH 35.6 pg (27-33) H 05/24/24 13:00 MCHC 32.9 g/dL (30-55) 05/24/24 13:00 RDW 14.4 % (12.1-15.1) 05/24/24 13:00 Plt Count 431 10^3/cmm (157-399) H 05/24/24 13:00 MPV 8.9 fL (7.4-10.4) 05/24/24 13:00 Neut % (Auto) 71.0 % 05/24/24 13:00 Lymph % (Auto) 20.9 % 05/24/24 13:00 [place] % (Auto) 6.2 % 05/24/24 13:00 Eos % (Auto) 0.8 % 05/24/24 13:00 Baso % (Auto) 0.7 % 05/24/24 13:00 Neut # (Auto) 6.98 10^3/uL (1.8-7.7) 05/24/24 13:00 Lymph # (Auto) 2.1 10^3/uL (0.8-4.8) 05/24/24 13:00 [place] # (Auto) 0.6 10^3/uL (0.2-0.9) 05/24/24 13:00 Eos # (Auto) 0.1 10^3/uL (0.0-0.8) 05/24/24 13:00 Baso # (Auto) 0.1 10^3/uL (0.0-0.1) 05/24/24 13:00 Nucleated RBC % (auto) 0 % 05/24/24 13:00 Nucleated RBCs # 0.0 /100WBC 05/24/24 13:00 Sodium 135 mmol/L (136-145) L 05/24/24 14:12 Potassium 4.4 mmol/L (3.5-5.1) 05/24/24 14:12 Chloride 100 mmol/L (98-107) 05/24/24 14:12 Carbon Dioxide 26 mmol/L (22-29) 05/24/24 14:12 Anion Gap 13.4 (5-19) 05/24/24 14:12 BUN 14 mg/dL (6-20) 05/24/24 14:12 Creatinine 0.7 mg/dL (0.7-1.2) 05/24/24 14:12 GFR Calculation 121.4 mL/min (90-130) 05/24/24 14:12 Glucose 96 mg/dL (65-115) 05/24/24 14:12 Calculated Osmolality 280 mOsm/kg (285-295) L 05/24/24 14:12 Calcium 9.8 mg/dL (8.5-10.5) 05/24/24 14:12 Total Bilirubin 0.3 mg/dL (0.15-1.2) 05/24/24 14:12 AST 15 U/L (0-40) 05/24/24 14:12 ALT 17 U/L (0-41) 05/24/24 14:12 Alkaline Phosphatase 121 U/L (40-130) 05/24/24 14:12 Total Protein 7.5 g/dL (6.6-8.7) 05/24/24 14:12 Albumin 4.5 g/dL (3.5-5.2) 05/24/24 14:12 Globulin 3.0 g/dL (1.3-4.6) 05/24/24 14:12 Lipase 55 U/L (13-60) 05/24/24 14:12 Urine Color Yellow (Yellow) 05/24/24 13:00 Urine Appearance Clear (CLEAR) 05/24/24 13:00 Urine pH 5.0 (5-7) 05/24/24 13:[address] [place] 1.010 (1.005-1.030) 05/24/24 13:00 Urine Protein Negative (Negative) 05/24/24 13:00 Urine Glucose (UA) Negative (Normal) 05/24/24 13:00 Urine Ketones Negative (Negative) 05/24/24 13:00 Urine Blood Negative (Negative) 05/24/24 13:00 Urine Nitrate Negative (Negative) 05/24/24 13:00 Urine Bilirubin Negative (Negative) 05/24/24 13:00 Urine Urobilinogen 0.2 mg/dL (Negative) 05/24/24 13:00 Ur Leukocyte Esterase Negative (Negative) 05/24/24 13:00 Urine RBC 0-2 /hpf (0-2) 05/24/24 13:00 Urine WBC 0-5 /hpf (0-5) 05/24/24 13:00 Ur Squamous Epith Cells 0-5 /hpf (0-5) 05/24/24 13:00 Amorphous Sediment Not Reportable 05/24/24 13:00 Urine Bacteria None seen /hpf (NONE) 05/24/24 13:00 Hyaline Casts 0-4 /lpf H 05/24/24 13:00 All radiology interpretation(s) finalized by discharge EKG Data EKG 1: I personally reviewed and interpreted this EKG as follows: EKG interpretation date: 05/24/24 EKG interpretation time: 13:09 Interpretation: nsr hr [address] or t wave abnormalities qrs 103 qtc 404 Discharge Plan Discharge Patient Disposition: Home Clinical Impression: Abdominal pain, Colitis Condition: Stable Prescriptions: New hydrocodone-acetaminophen 5-325 mg tablet 1 tab PO Q6H PRN (Reason: pain) Qty: 14 0RF pantoprazole [Protonix] 40 mg tablet,delayed release (DR/EC) 40 mg PO DAILY Qty: 60 0RF ondansetron 4 mg tablet,disintegrating 4 mg PO Q6H PRN (Reason: nausea and vomiting) Qty: 14 0RF amoxicillin-pot clavulanate [Augmentin] 500-125 mg tablet 1 tab PO BID Qty: 14 0RF No Action hydroxyurea [Hydrea] 500 mg capsule 1,000 mg PO BID Qty: 120 0RF Discharge Orders: Discharge ED (Routine); Ordered 05/24/24 Ordered By: Zari Marc Referrals: Dani Pan MD [Physician] - 4-7 days Sue Mathews FNP [Primary Care Provider] - Discharge Diet: Advance as tolerated Discharge Activity: Resume usual activity Patient Instructions: Abdominal Pain (ED), Colitis (ED) Coding Level of Care Code ED Cutter Banana Room for Matthew Ferguson
[2024-05-24] MEDS: iohexol 350 mg/mL 500 mL Btl (per mL) IV (12:51)
[2024-05-24 13:02] VITALS: BP 133/95; PULSE 78; RESP 18; O2SAT 99
[2024-05-24] MEDS: HYDROmorphone 1 mg/mL INJ 1 mL IVP (13:02)
[2024-05-24] MEDS: ondansetron 2 mg/ML SDV 2 mL 4 MG IVP (13:02)
--- NOTE | 2024-05-24 13:05 | PC.NURSE ---
PATIENT GIVEN DILAUDID. PATIENT DID NOT TOLERATE MEDICATION WELL. PATIENT STATES PAIN SEVERAL SECONDS AFTER IV PUSH. PATIENT BECAME VERY RED IN THE FACE. PATIENT ENCOURAGED TO BREATHE IN THROUGH THE NOSE AND OUT THROUGH THE MOUTH. NURSE STAYED WITH PATIENT UNTIL PAIN SUBSIDED.
[2024-05-24 13:07] LABS: Basophils # 0.1 10^3/uL (0.0-0.1); Basophils % 0.7 %; Eosinophils # 0.1 10^3/uL (0.0-0.8); Eosinophils % 0.8 %; Hematocrit 42.8 % (37-53); Lymphocytes # 2.1 10^3/uL (0.8-4.8); Lymphocytes % 20.9 %; Mean Corpuscular HGB Conc 32.9 g/dL (30-55); Mean Corpuscular Hemoglobin 35.6 pg (27-33); Mean Corpuscular Volume 108.1 fl (82-101); Mean Platelet Volume 8.9 fL (7.4-10.4); Monocytes # 0.6 10^3/uL (0.2-0.9); Monocytes % 6.2 %; Neutrophils # 6.98 10^3/uL (1.8-7.7); Nucleated Red Blood Cells % 0 %; Platelet Count 431 10^3/cmm (157-399); Red Blood Count 3.96 10^6/uL (3.85-5.65); Red Cell Distribution Width 14.4 % (12.1-15.1); White Blood Count 9.84 10^3/uL (3.29-11.43)
[2024-05-24 13:15] LABS: Bilirubin Urine Negative (Negative); Blood Urine Negative (Negative); Glucose Urine UA Negative (Normal); Ketones Urine Negative (Negative); Leukocyte Esterase Urine Negative (Negative); Nitrate Urine Negative (Negative); Protein Urine Negative (Negative); Urine Appearance Clear (CLEAR); Urine Color Yellow (Yellow); Urobilinogen Urine 0.2 mg/dL (Negative)
[2024-05-24 13:17] LABS: Add Urine Microscopic? YES; Bacteria Urine None Seen /hpf; Hyaline Casts Urine 0-4 /lpf; RBC Urine 0-2 /hpf (0-2); Squamous Epithelial Cell Urine 0-5 /hpf (0-5); WBC Urine 0-5 /hpf (0-5)
[2024-05-24 14:08] VITALS: BP 143/97; PULSE 79; RESP 16; O2SAT 98
[2024-05-24 14:48] LABS: Alanine Aminotransferase 17 U/L (0-41); Albumin Level 4.5 g/dL (3.5-5.2); Alkaline Phosphatase 121 U/L (40-130); Anion Gap 13.4 (5-19); Aspartate Amino Transferase 15 U/L (0-40); Blood Urea Nitrogen 14 mg/dL (6-20); Calcium 9.8 mg/dL (8.5-10.5); Carbon Dioxide 26 mmol/L (22-29); Chloride 100 mmol/L (98-107); Creatinine Clr Calc Pharmacy 160.5468; Glomerular Filtration Rate 121.4 mL/min (90-130); Glucose 96 mg/dL (65-115); Lipase 55 U/L (13-60); Osmolality Calculated 280 mOsm/kg (285-295); Potassium 4.4 mmol/L (3.5-5.1); Sodium 135 mmol/L (136-145); Total Bilirubin 0.3 mg/dL (0.15-1.2); Total Protein 7.5 g/dL (6.6-8.7)
[2024-05-24 15:22] VITALS: BP 127/94; PULSE 81; O2SAT 96
--- NOTE | 2024-05-24 15:33 | DCPLANNER ---
messaged gen surgery for er f/u
== END 2024-05-24 15:26 | disposition home or self-care (01) ==
PROVIDERS: Emergency Provider Emergency Medicine; PCP Nurse Practitioner Family
DX: K52.9 Noninfective gastroenteritis and colitis, unspecified (principal); F17.210 Nicotine dependence, cigarettes, uncomplicated; I25.10 Atherosclerotic heart disease of native coronary artery without angina pectoris
CPT/HCPCS: 36415; 74177; 80053; 81001; 83690; 85025; 93005; 96374; 96375; 99285; J1171; J2405

== ENCOUNTER 2024-06-26 06:00 | Outpatient (RCR) | payer OTHER, SELFPAY | END 2024-07-23 23:59 | disposition home or self-care (01) | LOC: TPT 06:00 | PROVIDERS: Visit Provider Orthopaedic Surgery | DX: M25.512 Pain in left shoulder (principal) | CPT/HCPCS: 97110; 97161 ==

== ENCOUNTER 2024-07-20 06:52 | Day surgery (SDC) | payer OTHER, SELFPAY ==
[2024-07-20 07:10] VITALS: BP 129/96; PULSE 73; RESP 18; TEMP 36.4; O2SAT 96
[2024-07-20] MEDS: sodium chloride 0.9% 500 ML 15 ML IV (07:22)
--- NOTE | 2024-07-20 07:39 | ANES.PREANE2 ---
Pre-Anesthetic Assessment Height/Weight: Height 1.91 m Weight 88.451 kg Temp Pulse Resp BP Pulse Ox O2 Del Method 97.5 F L 73 18 129/96 96 Room Air 07/20/24 07:10 07/20/24 07:10 07/20/24 07:10 07/20/24 07:10 07/20/24 07:10 07/20/24 07:10 Operation Date: 07/20/24 08:00 Proposed Procedures p EGD [id number], [id number], G0105, Z12.11(Not Applicable) - Dani Pan MD s Colonoscopy(Not Applicable) - Dani Pan MD Familial anesthetic complications: none Was Beta Little taken within 24 hours: N/A Was Clonidine taken within 24 hours: N/A Last intake: Intake Last Liquid Date 07/19/24 Last Liquid Time 23:55 Last Solid Date 07/18/24 Last Solid Time 22:00 Social Alcohol (5-6 shots/day) and Tobacco (1/2 ppd) Exam alert and oriented x 3 Airway Submandibular: within normal limits Cervical ROM: within normal limits Mallampati: Class I Dentition: false Pulmonary None reported CV/HEM Hypertension and Myocardial Infarction (2020- 2 stents placed. patient stopped taking blood thinners. no chest pain since stents were placed per patient) None reported Hepatic None reported GI Gastroesophageal Reflux Disease Metabolic None reported Musc/skel None reported Neuropsych None reported Anesthetic Plan ASA status: 3 Anesthesia: Anesthesia Evaluation and MAC Medications/Allergies Home Medications ?Medication ?Instructions ?Recorded ?Confirmed ?Last Taken ?Type hydroxyurea 500 mg capsule (Hydrea) 1,000 mg (2 x 500 mg) PO BID #120 04/28/24 07/15/24 07/15/24 Rx caps pantoprazole 40 mg tablet,delayed 40 mg PO BID 6 weeks #84 tabs 06/17/24 07/15/24 07/15/24 Rx release (Protonix) Allergies Allergy/AdvReac Type Severity Reaction Status Date / Time No Known Allergies Allergy Verified 06/17/24 08:15 Current Medications Generic Name Dose Route Start Last Admin Trade Name Freq PRN Reason Stop Dose Admin Sodium Chloride 500 mls @ 15 mls/hr 07/20/24 06:59 07/20/24 07:22 Sodium Chloride 0.9% IV 07/21/24 06:58 15 mls/hr .Q24H PRN Administration COLONOSCOPY FLUIDS PFSH Anesthesia Medical History Polycythemia vera Coronary artery disease Tobacco abuse Right bundle branch block MVP (mitral valve prolapse) Surgical History S/P coronary artery stent placement First diagonal S/P nasal surgery Family History Brother , age 37; [place] CAD (coronary artery disease) Mother CAD (coronary artery disease) Social History (Updated 06/17/24 @ 08:20 by IRIS Cruz) Smoking and tobacco/nicotine status: current every day tobacco/nicotine user cigarettes Packs smoked per day: 0.5 Years cigarettes smoked: 33 and smokeless tobacco Smokeless tobacco user: chewing tobacco Smokeless tobacco details: total use 10 years Second hand smoke exposure: Yes Alcohol intake: current Alcohol intake frequency: holidays/special occasions only Substance/Drug Use: current Substance/Drug use frequency: daily Caregiver/support person: Yes Lives independently: Yes Household members: spouse Marital status: service: No Current occupational status: employed Current gender identity: Male Data Anesthesia Cardiac Studies: Echocardiogram 11/23/20
--- NOTE | 2024-07-20 07:54 | W.PM.OPSFHP ---
Same Day Surgery H&P Indication for Procedure/HPI DATE OF PROCEDURE: July 20, 2024 CHIEF COMPLAINT/INDICATIONFOR SURGICAL PROCEDURE: screening colonoscopy and heartburn PREOP DIAGNOSIS: screening colonoscopy and heartburn PLANNED PROCEDURE: Operation Date: 07/20/24 08:00 Proposed Procedures p EGD [id number], [id number], G0105, Z12.11(Not Applicable) - Dani Pan MD s Colonoscopy(Not Applicable) - Dani Pan MD Medications/Allergies* Allergies/Adverse Reactions Allergy/AdvReac Type Severity Reaction Status Date / Time No Known Allergies Allergy Verified 06/17/24 08:15 Current Medications: Generic Name Dose Route Start Last Admin Trade Name Freq PRN Reason Stop Dose Admin Sodium Chloride 500 mls @ 15 mls/hr 07/20/24 06:59 07/20/24 07:22 Sodium Chloride 0.9% IV 07/21/24 06:58 15 mls/hr .Q24H PRN Administration COLONOSCOPY FLUIDS Pertinent History/Comorbid Conditions* Medical History (Updated 06/01/24 @ 00:00 by MARY Hwang) Polycythemia vera Coronary artery disease Tobacco abuse Right bundle branch block MVP (mitral valve prolapse) Surgical History (Updated 12/28/23 @ 12:35 by Tyron Scales MD) S/P coronary artery stent placement First diagonal S/P nasal surgery Family History (Updated 11/22/20 @ 11:54 by Sue Escobar LPN, RT) Brother, age 37; [place] CAD (coronary artery disease) Brother Mother Social History Smoking and tobacco/nicotine status: current every day tobacco/nicotine user cigarettes Packs smoked per day: 0.5 Years cigarettes smoked: 33 and smokeless tobacco Smokeless tobacco user: chewing tobacco Smokeless tobacco details: total use 10 years Second hand smoke exposure: Yes Alcohol intake: current Alcohol intake frequency: holidays/special occasions only Substance/Drug Use: current Substance/Drug use frequency: daily Caregiver/support person: Yes Lives independently: Yes Household members: spouse Marital status: service: No Current occupational status: employed Current gender identity: Male Pertinent Exam Findings alert, oriented x 3, clear to auscultation bilaterally, regular rate & rhythm and procedure specific exam findings abdomen soft, nt, nd Recommendations Surgery/Procedure today Coding Level of Care Code Acute Code for Chg Fwd
[2024-07-20 08:16] VITALS: BP 113/73; PULSE 70; RESP 18; TEMP 36.3; O2SAT 96
--- NOTE | 2024-07-20 08:33 | ANE.PACU2 ---
Inpatient post-anesthesia follow up: Airway intact: Yes Vital signs: Temperature 97.4 F Pulse Rate 70 Respiratory Rate 18 Blood Pressure 113/73 Pulse Oximetry 96 Oxygen Delivery Me thod Room Air Oxygen Flow Rate Fraction of Inspir ed Oxygen Hydration adequate: Yes Nausea and vomiting: No Pain level: 1 Mental status: Baseline
[2024-07-20 08:37] VITALS: BP 133/88; PULSE 64; RESP 18; O2SAT 99
== END 2024-07-20 08:50 | disposition home or self-care (01) ==
PROVIDERS: PCP Nurse Practitioner Family; Visit Provider Student in an Organized Health Care Education/Training Program
PROC: 0DJ08ZZ Inspection of Upper Intestinal Tract, Via Natural or Artificial Opening Endoscopic (ICD-10-PCS; principal; 2024-07-20 08:00)
PROC: 0DJD8ZZ Inspection of Lower Intestinal Tract, Via Natural or Artificial Opening Endoscopic (ICD-10-PCS; CPT 45378; 2024-07-20 08:00)
DX: Z12.11 Encounter for screening for malignant neoplasm of colon (principal); K21.9 Gastro-esophageal reflux disease without esophagitis; K29.50 Unspecified chronic gastritis without bleeding; B96.81 Helicobacter pylori [H. pylori] as the cause of diseases classified elsewhere; K31.A11 Gastric intestinal metaplasia without dysplasia, involving the antrum; I25.10 Atherosclerotic heart disease of native coronary artery without angina pectoris; Z95.5 Presence of coronary angioplasty implant and graft; D45 Polycythemia vera; F17.210 Nicotine dependence, cigarettes, uncomplicated; F17.220 Nicotine dependence, chewing tobacco, uncomplicated; I10 Essential (primary) hypertension; I25.2 Old myocardial infarction
CPT/HCPCS: 43239; 45378; 88305; 88342; J2704; J3010; J3490; J7040

== ENCOUNTER 2024-07-24 06:00 | Outpatient (RCR) | payer OTHER, SELFPAY | END 2024-08-23 23:59 | disposition home or self-care (01) | LOC: TPT 06:00 | PROVIDERS: PCP Nurse Practitioner Family; Visit Provider Orthopaedic Surgery | DX: M25.512 Pain in left shoulder (principal) | CPT/HCPCS: 97110 ==

== ENCOUNTER 2024-07-28 11:15 | Oncology outpatient (recurring) (ONCR) | payer OTHER, SELFPAY ==
[2024-07-28 11:35] LABS: Basophils # 0.1 10^3/uL (0.0-0.1); Basophils % 0.7 %; Eosinophils # 0.1 10^3/uL (0.0-0.8); Eosinophils % 1.1 %; Hematocrit 45.9 % (37-53); Lymphocytes # 1.9 10^3/uL (0.8-4.8); Lymphocytes % 23.2 %; Mean Corpuscular HGB Conc 32.7 g/dL (30-55); Mean Corpuscular Hemoglobin 34.3 pg (27-33); Mean Platelet Volume 8.8 fL (7.4-10.4); Monocytes # 0.6 10^3/uL (0.2-0.9); Monocytes % 7.8 %; Neutrophils # 5.47 10^3/uL (1.8-7.7); Neutrophils % 66.7 %; Nucleated Red Blood Cells % 0 %; Platelet Count 537 10^3/cmm (157-399); Red Blood Count 4.37 10^6/uL (3.85-5.65); Red Cell Distribution Width 14.7 % (12.1-15.1)
[2024-07-28 11:53] LABS: Alanine Aminotransferase 18 U/L (0-41); Albumin Level 4.4 g/dL (3.5-5.2); Alkaline Phosphatase 130 U/L (40-130); Anion Gap 14.3 (5-19); Aspartate Amino Transferase 15 U/L (0-40); Blood Urea Nitrogen 16 mg/dL (6-20); Calcium 9.5 mg/dL (8.5-10.5); Carbon Dioxide 27 mmol/L (22-29); Chloride 102 mmol/L (98-107); Globulin 3.2 g/dL (1.3-4.6); Glomerular Filtration Rate 90.8 mL/min (90-130); Glucose 97 mg/dL (65-115); Osmolality Calculated 289 mOsm/kg (285-295); Potassium 4.3 mmol/L (3.5-5.1); Sodium 139 mmol/L (136-145); Total Bilirubin 0.3 mg/dL (0.15-1.2); Total Protein 7.6 g/dL (6.6-8.7)
== END 2024-08-23 23:59 | disposition home or self-care (01) ==
PROVIDERS: Nurse Practitioner Family; PCP Nurse Practitioner Family; Visit Provider Internal Medicine
DX: D45 Polycythemia vera (principal)
CPT/HCPCS: 36415; 80053; 85025

== ENCOUNTER → 2024-09-21 16:05 | Outpatient (BNVA) | payer OTHER, SELFPAY | PROVIDERS: PCP Nurse Practitioner Family; Visit Provider Orthopaedic Surgery | DX: M25.512 Pain in left shoulder (principal) | CPT/HCPCS: 73030 ==

== ENCOUNTER 2024-10-27 12:07 | Oncology outpatient (recurring) (ONCR) | payer OTHER, SELFPAY ==
[2024-10-27 12:30] LABS: Basophils # 0.1 10^3/uL (0.0-0.1); Basophils % 0.8 %; Eosinophils # 0.1 10^3/uL (0.0-0.8); Eosinophils % 0.6 %; Hematocrit 45.3 % (37-53); Lymphocytes # 1.8 10^3/uL (0.8-4.8); Lymphocytes % 19.1 %; Mean Corpuscular HGB Conc 33.6 g/dL (30-55); Mean Corpuscular Hemoglobin 34.8 pg (27-33); Mean Corpuscular Volume 103.7 fl (82-101); Mean Platelet Volume 8.9 fL (7.4-10.4); Monocytes # 0.4 10^3/uL (0.2-0.9); Monocytes % 4.4 %; Neutrophils # 7.11 10^3/uL (1.8-7.7); Neutrophils % 74.5 %; Nucleated Red Blood Cells % 0 %; Platelet Count 429 10^3/cmm (157-399); Red Blood Count 4.37 10^6/uL (3.85-5.65); Red Cell Distribution Width 15.4 % (12.1-15.1); White Blood Count 9.56 10^3/uL (3.29-11.43)
[2024-10-27 12:50] LABS: Alanine Aminotransferase 19 U/L (0-41); Albumin Level 4.5 g/dL (3.5-5.2); Alkaline Phosphatase 122 U/L (40-130); Anion Gap 17.9 (5-19); Aspartate Amino Transferase 16 U/L (0-40); Blood Urea Nitrogen 17 mg/dL (6-20); Calcium 9.1 mg/dL (8.5-10.5); Carbon Dioxide 23 mmol/L (22-29); Chloride 101 mmol/L (98-107); Globulin 2.8 g/dL (1.3-4.6); Glomerular Filtration Rate 80.1 mL/min (90-130); Glucose 141 mg/dL (65-115); Osmolality Calculated 290 mOsm/kg (285-295); Potassium 3.9 mmol/L (3.5-5.1); Sodium 138 mmol/L (136-145); Total Bilirubin 0.3 mg/dL (0.15-1.2); Total Protein 7.3 g/dL (6.6-8.7)
== END 2024-11-22 23:59 | disposition home or self-care (01) ==
PROVIDERS: PCP Nurse Practitioner Family; Visit Provider Nurse Practitioner Family
DX: D45 Polycythemia vera (principal)
CPT/HCPCS: 80053; 85025

== ENCOUNTER 2025-02-25 21:00 | Emergency (ER) | payer OTHER, SELFPAY ==
[2025-02-25 21:12] VITALS: BP 167/89; PULSE 101; RESP 18; TEMP 36.6; O2SAT 97
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
[2025-02-25 21:52] VITALS: BP 142/101; PULSE 92; RESP 18; O2SAT 98
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
[2025-02-25] MEDS: HYDROcodone-acetaminophen 10-325 mg Tablet 1 TAB PO (23:25)
[2025-02-25] MEDS: cefTRIAXone 1,000 MG in water for injection-sterile 2.1 ML 2.1 MG IM (23:25)
[2025-02-25] MEDS: HYDROcodone-acetaminophen 10-325 mg Tablet 2 TAB PO (23:26)
[2025-02-25] MEDS: orphenadrine 30 mg/mL Inj 2 mL 60 MG IM (23:27)
[2025-02-25 23:36] VITALS: BP 151/94; PULSE 86; RESP 18; O2SAT 98
== END 2025-02-25 23:39 | disposition home or self-care (01) ==
PROVIDERS: Emergency Provider Physician Assistant; PCP Nurse Practitioner Family
DX: L03.116 Cellulitis of left lower limb (principal); F17.210 Nicotine dependence, cigarettes, uncomplicated; F17.220 Nicotine dependence, chewing tobacco, uncomplicated; I25.10 Atherosclerotic heart disease of native coronary artery without angina pectoris
CPT/HCPCS: 73560; 96372; 99284; J0696; J1885; J2360; J9999